=== PATIENT | female | born 1975 | race Caucasian/White ===

== ENCOUNTER 2019-02-11 05:28 | Emergency (ER) | payer OTHER ==
[2019-02-11] MEDS ORDERED: CLINDAMYCIN PHOSPHATE 150 MG/ML VIAL IM ONE (06:04)
[2019-02-11] MEDS ORDERED: HYDROmorphone HCL INJ 2 MG/ML VIAL IM ONE (06:05)
--- NOTE | 2019-02-11 06:11 | ED.PDOC ---
History of Present Illness - General Chief Complaint: Dental/Mouth Stated Complaint: Low jaw pain Time Seen by Provider: 02/11/19 06:04 Source: patient Exam Limitations: no limitations Additional Information: 44-year-old female presents to the ER with chief complaint of diffuse lower gumline swelling. Patient indicates that she has multiple sclerosis and because of the medications shis over the past 5 years most of her teeth have "rotted". Patient has a loose lower incisor tooth and was picking at it with a diabetic lancets yesterday and this morning awoke with severe lower outer gumline pain and swelling. Patient denies fever or chills. Patient is having no difficulty swallowing or breathing. Her tongue is uninvolved. Patient rates her pain as moderate to severe, sharp in intensity. - History of Present Illness Allergies/Adverse Reactions: Allergies Codeine Allergy (Verified 02/11/19 05:42) Adhesive Tape Allergy (Uncoded 02/11/19 05:42) Sulfa Drugs Allergy (Uncoded 02/11/19 05:42) Home Medications: Ambulatory Orders Chlorhexidine Mouth Rinse [Peridex] 10 ml TOP TID #1 bttl 02/11/19 Clindamycin HCl [Clindamycin Hydrochloride] 300 mg PO QID #40 cap 02/11/19 Tramadol HCl [Ultram] 100 mg PO Q8H PRN #20 tab 02/11/19 Review of Systems - Review of Systems Constitutional: States: no symptoms reported. Denies: fever EENTM: States: see HPI Respiratory: States: no symptoms reported. Denies: cough, orthopnea, short of breath Cardiology: States: no symptoms reported, other - known heart murmur. Denies: chest pain Gastrointestinal/Abdominal: States: no symptoms reported. Denies: abdominal pain, nausea, vomiting Genitourinary: States: no symptoms reported Musculoskeletal: States: no symptoms reported Skin: States: no symptoms reported Neurological: States: no symptoms reported All other Systems: Reviewed and Negative Past Medical History (General) - Patient Medical History Hx Cardiac Disorders: Yes - Pulmonary Stenosis / Murmur Hx Congestive Heart Failure: Yes Hx Hypertension: Yes Hx Diabetes: No - Female History Patient is a Female of Child Bearing Age (10 -59 yrs old): Yes Family Medical History - Family History Mother Family History: Unknown Physical Exam - Physical Exam General Appearance: Alert, Comfortable, No apparent distress, Obese Nasal Exam: normal inspection Throat Exam: pharynx normal, dental tenderness - patient with entire mandibular row of teeth severely decayed. There is diffuse mild edema to the buccal surface of the gumline. Negative erythema. Negative fluctuance., other - tongue and floor of mouth with normal inspection. There is no tenderness to palpation to the floor of mouth, negative edema. Voice is normal Neck: non-tender, full range of motion, supple, normal inspection Cardiovascular/Respiratory: regular rate, rhythm, murmur - 3/6 systolic ejection murmur Neurologic: no motor/sensory deficits Skin Exam: normal color, warm/dry Progress - Progress Progress: 02/11/19 06:16 patient with severe decay to all the teeth in her jaw line. It is diffuse edema to the buccal surface of the jawline mucosa but there is no evidence of abscess or necrotization. There is no evidence of Jaspreet angina.facial inspection without any obvious edema. Clindamycin IM given in the ED and patient to be discharged home with clindamycin and Peridex. Patient strongly counseled that she must follow-up with a dentist in order to properly clear her infection and resolve her edema. Patient has no signs or symptoms of sepsis today and there is no indication for formal ED workup with laboratory testing or imaging. Vital signs stable, patient NAD and looks clinically well and is safe for discharge with outpatient follow-up. Follow-up instructions, discharge instructions and return to ED precautions discussed with patient, Patient voices understanding and willingness to comply with instructions. All laboratory and radiographic results have been discussed with the patient, and all questions answered.. Patient happy with plan. - EKG/XRAY/CT CT Ordered: No CT Interpretation Call Back: No Departure - Departure Clinical Impression: Gingivitis, acute, [id number] disease, Dental neglect, Compound dental caries Time of Disposition: 06:20 Disposition: Discharge to Home or Self Care Condition: Fair Departure Forms: ED Discharge - Pt. Copy, Patient Portal Self Enrollment Instructions: DI for Mouth Pain, DI for Dental Pain Diet: resume usual diet Referrals: JOSUE CHAN DDS [Dentist] - 1-2 Weeks Prescriptions: Chlorhexidine Mouth Rinse [Peridex] 10 ml TOP TID #1 bttl Clindamycin HCl [Clindamycin Hydrochloride] 300 mg PO QID #40 cap Tramadol HCl [Ultram] 100 mg PO Q8H PRN #20 tab PRN Reason: Pain Home Medications: Ambulatory Orders Chlorhexidine Mouth Rinse [Peridex] 10 ml TOP TID #1 bttl 02/11/19 Clindamycin HCl [Clindamycin Hydrochloride] 300 mg PO QID #40 cap 02/11/19 Tramadol HCl [Ultram] 100 mg PO Q8H PRN #20 tab 02/11/19
[2019-02-11 06:38] VITALS: BP 108/67; TEMP 97.5; O2SAT 96
== END 2019-02-11 06:37 | disposition home or self-care (01) ==
LOC: ER 05:28
DX: K05.00 Acute gingivitis, plaque induced (principal); K02.9 Dental caries, unspecified; B08.4 Enteroviral vesicular stomatitis with exanthem; R01.1 Cardiac murmur, unspecified; I50.9 Heart failure, unspecified; I11.0 Hypertensive heart disease with heart failure; Z88.5 Allergy status to narcotic agent; Z88.2 Allergy status to sulfonamides
CPT/HCPCS: J1170; J3490

== ENCOUNTER 2019-03-16 18:39 | Emergency (ER) | payer MEDICAID, OTHER ==
[2019-03-16 18:56] VITALS: O2SAT 99
[2019-03-16] MEDS ORDERED: KETOROLAC TROMETHAMINE INJ 30 MG/ML VIAL IM ONE (19:04)
[2019-03-16] MEDS ORDERED: MORPHINE SULFATE INJ 10 MG/ML VIAL IM ONE (19:04)
[2019-03-16] MEDS ORDERED: diphenhydrAMINE HCL 50 MG/ML VIAL IM ONE (19:05)
--- NOTE | 2019-03-16 19:08 | ED.PDOC ---
History of Present Illness - General Chief Complaint: Dental/Mouth Stated Complaint: dental pain,facial swelling Time Seen by Provider: 03/16/19 19:03 - History of Present Illness Initial Comments: c/o dental pain on the R side : upper tooth for few days . Timing/Duration: gradual, last week Improving Factors: nothing Worsening Factors: nothing Associated Symptoms: tooth pain Allergies/Adverse Reactions: Allergies Codeine Allergy (Verified 02/11/19 05:42) Adhesive Tape Allergy (Uncoded 02/11/19 05:42) Sulfa Drugs Allergy (Uncoded 02/11/19 05:42) Home Medications: Ambulatory Orders DULoxetine HCL [Cymbalta] 30 mg PO TID 03/16/19 Metoprolol Succinate [Metoprolol Succinate ER] 50 mg PO DAILY 03/16/19 RX: Amoxicillin 500 mg PO TID #10 tab 03/16/19 RX: Atorvastatin Calcium 40 mg PO DAILY 03/16/19 RX: Gabapentin 800 mg PO TID 03/16/19 RX: Lidocaine 4% Topical [Xylocaine 4% Topical] 50 ml TOP Q6HR 5 Days bttl 03/16/19 RX: Pantoprazole Sodium 40 mg PO DAILY 03/16/19 tiZANidine [Zanaflex] 4 mg PO TID 03/16/19 Review of Systems - Review of Systems Constitutional: States: no symptoms reported EENTM: States: see HPI Respiratory: States: no symptoms reported Cardiology: States: no symptoms reported Gastrointestinal/Abdominal: States: no symptoms reported Genitourinary: States: no symptoms reported Musculoskeletal: States: no symptoms reported Skin: States: no symptoms reported Neurological: States: no symptoms reported Past Medical History (General) - Patient Medical History Hx Stroke: No Hx Cardiac Disorders: Yes - Pulmonary Stenosis / Murmur Hx Congestive Heart Failure: Yes Hx Hypertension: Yes Hx Diabetes: No - Vaccination History Hx Influenza Vaccination: Yes - 2018 - Social History Hx Tobacco Use: Yes - Female History Patient is a Female of Child Bearing Age (10 -59 yrs old): Yes - has been bleeding for 4 months Family Medical History - Family History Mother Family History: Unknown Physical Exam - Physical Exam General Appearance: Alert Eye Exam: bilateral normal Ear Exam: bilateral ear: auricle normal Nasal Exam: normal inspection Throat Exam: normal mouth inspection, pharynx normal, dental tenderness Neck: non-tender, full range of motion, supple, normal inspection Neurologic: no motor/sensory deficits, alert, normal mood/affect, oriented x 3 Skin Exam: normal color, warm/dry Departure - Departure Clinical Impression: Dental caries, Chronic dental infection, Painful mouth, Chronic dental pain, Gingivitis, acute, Compound dental caries Time of Disposition: 19:08 Disposition: Discharge to Home or Self Care Condition: Good Departure Forms: ED Discharge - Pt. Copy, Patient Portal Self Enrollment Instructions: DI for Dental Pain, DI for Mouth Pain Activity: increase activity as tolerated, walking as tolerated Prescriptions: RX: Lidocaine 4% Topical [Xylocaine 4% Topical] 50 ml TOP Q6HR 5 Days bttl RX: Amoxicillin 500 mg PO TID #10 tab Home Medications: Ambulatory Orders DULoxetine HCL [Cymbalta] 30 mg PO TID 03/16/19 Metoprolol Succinate [Metoprolol Succinate ER] 50 mg PO DAILY 03/16/19 RX: Amoxicillin 500 mg PO TID #10 tab 03/16/19 RX: Atorvastatin Calcium 40 mg PO DAILY 03/16/19 RX: Gabapentin 800 mg PO TID 03/16/19 RX: Lidocaine 4% Topical [Xylocaine 4% Topical] 50 ml TOP Q6HR 5 Days bttl 03/16/19 RX: Pantoprazole Sodium 40 mg PO DAILY 03/16/19 tiZANidine [Zanaflex] 4 mg PO TID 03/16/19
[2019-03-16] MEDS ORDERED: cefTRIAXone SODIUM 1 GM VIAL IM ONE (19:12)
[2019-03-16] MEDS ORDERED: LIDOCAINE 1% 2 ML VIAL INJ ONE (19:14)
[2019-03-16] MEDS ORDERED: cefTRIAXone SODIUM 1 GM VIAL ONE (19:14)
[2019-03-16 20:03] VITALS: BP 164/102; TEMP 98
== END 2019-03-16 20:03 | disposition home or self-care (01) ==
LOC: ER 18:39
DX: K04.7 Periapical abscess without sinus (principal); K02.9 Dental caries, unspecified; K05.00 Acute gingivitis, plaque induced; G89.29 Other chronic pain; R01.1 Cardiac murmur, unspecified; I50.9 Heart failure, unspecified; I11.0 Hypertensive heart disease with heart failure; Q25.6 Stenosis of pulmonary artery; Z87.891 Personal history of nicotine dependence; Z79.899 Other long term (current) drug therapy; Z88.5 Allergy status to narcotic agent; Z88.2 Allergy status to sulfonamides
CPT/HCPCS: J0696; J1200; J1885; J2270

== ENCOUNTER 2019-03-23 09:21 | Emergency (ER) | payer OTHER ==
[2019-03-23] MEDS ORDERED: CLINDAMYCIN PHOSPHATE 150 MG/ML VIAL IM ONE (09:41)
[2019-03-23] MEDS ORDERED: KETOROLAC TROMETHAMINE INJ 30 MG/ML VIAL IM ONE (09:42)
[2019-03-23] MEDS ORDERED: cefTRIAXone SODIUM 1 GM VIAL IM ONE (09:42)
--- NOTE | 2019-03-23 09:46 | ED.PDOC ---
History of Present Illness - General Chief Complaint: Dental/Mouth Stated Complaint: L facial swelling/discomfort Time Seen by Provider: 03/23/19 09:41 - History of Present Illness Initial Comments: c/ L sided facial swelling and L dental pain started 1 day back : getting worse Timing/Duration: yesterday Severity: severe EENT Location: dental Improving Factors: nothing Worsening Factors: nothing Associated Symptoms: tooth pain Allergies/Adverse Reactions: Allergies Codeine Adverse Reaction (Verified 03/23/19 09:33) Other Causes a headache Sulfa Drugs Allergy (Uncoded 03/23/19 09:33) Rash Adhesive Tape Adverse Reaction (Uncoded 03/23/19 09:33) Other Skin irritation Home Medications: Ambulatory Orders Atorvastatin Calcium 40 mg PO DAILY 03/16/19 DULoxetine HCL [Cymbalta] 30 mg PO TID 03/16/19 Gabapentin 800 mg PO TID 03/16/19 Metoprolol Succinate [Metoprolol Succinate ER] 50 mg PO DAILY 03/16/19 Pantoprazole Sodium 40 mg PO DAILY 03/16/19 tiZANidine [Zanaflex] 4 mg PO TID 03/16/19 Clindamycin HCl 300 mg PO QID #40 cap 03/23/19 Doxycycline (Monohydrate) [Doxycycline] 100 mg PO BID #20 tab 03/23/19 Naproxen [Naprosyn] 500 mg PO BID #12 tab 03/23/19 Review of Systems - Review of Systems Constitutional: States: no symptoms reported EENTM: States: see HPI Respiratory: States: no symptoms reported Cardiology: States: no symptoms reported Gastrointestinal/Abdominal: States: no symptoms reported Genitourinary: States: no symptoms reported Musculoskeletal: States: no symptoms reported Skin: States: no symptoms reported Neurological: States: no symptoms reported Endocrine: States: no symptoms reported Hematologic/Lymphatic: States: no symptoms reported Past Medical History (General) - Patient Medical History Hx Stroke: No Hx of COPD: - Hx pulmonary stenosis Hx Cardiac Disorders: Yes - Pulmonary Stenosis / Murmur Hx Congestive Heart Failure: No Hx Hypertension: Yes Hx Thyroid Disease: Yes - Pt is not taking the medication Hx Diabetes: No Hx Gastroesophageal Reflux: Yes Hx MRSA: No Surgical History: other - Vaccination History Hx Influenza Vaccination: Yes - 2017 Hx Pneumococcal Vaccination: Yes - 2018 - Social History Hx Tobacco Use: Yes Hx Alcohol Use: No - Female History Patient is a Female of Child Bearing Age (10 -59 yrs old): Yes - Continuous bleeding x 3 months Patient : No Family Medical History - Family History Mother Family History: Unknown Living Status: Still Living Hx Family Congestive Heart Failure: Yes Hx Family Hypertension: Yes Hx Cardiac Disease: Yes Hx Family Diabetes: Yes Hx Family Cancer: Yes - Hx skin CA Physical Exam - Physical Exam General Appearance: Alert Eye Exam: bilateral normal Ear Exam: bilateral ear: auricle normal Nasal Exam: normal inspection Throat Exam: pharynx normal, other - L gingival swelling and tenderness Neck: non-tender, full range of motion, supple Neurologic: no motor/sensory deficits, alert, normal mood/affect, oriented x 3 Skin Exam: normal color Departure - Departure Clinical Impression: Facial swelling, Dental abscess, Gingivitis, acute Time of Disposition: 09:46 Disposition: Discharge to Home or Self Care Condition: Good Departure Forms: ED Discharge - Pt. Copy, Patient Portal Self Enrollment Diet: resume usual diet Activity: increase activity as tolerated Prescriptions: Clindamycin HCl 300 mg PO QID #40 cap Doxycycline (Monohydrate) [Doxycycline] 100 mg PO BID #20 tab Naproxen [Naprosyn] 500 mg PO BID #12 tab Home Medications: Ambulatory Orders Atorvastatin Calcium 40 mg PO DAILY 03/16/19 DULoxetine HCL [Cymbalta] 30 mg PO TID 03/16/19 Gabapentin 800 mg PO TID 03/16/19 Metoprolol Succinate [Metoprolol Succinate ER] 50 mg PO DAILY 03/16/19 Pantoprazole Sodium 40 mg PO DAILY 03/16/19 tiZANidine [Zanaflex] 4 mg PO TID 03/16/19 Clindamycin HCl 300 mg PO QID #40 cap 03/23/19 Doxycycline (Monohydrate) [Doxycycline] 100 mg PO BID #20 tab 03/23/19 Naproxen [Naprosyn] 500 mg PO BID #12 tab 03/23/19 Additional Instructions: Refer to dentist Follow up PCP in 1-2 days
[2019-03-23] MEDS ORDERED: LIDOCAINE 1% 10 ML VIAL INJ ONE (09:48)
[2019-03-23] MEDS ORDERED: MORPHINE SULFATE INJ 10 MG/ML VIAL IM ONE (09:51)
[2019-03-23] MEDS ORDERED: diphenhydrAMINE HCL 25 MG CAP PO ONE (09:53)
[2019-03-23 10:43] VITALS: BP 144/84; TEMP 97.4; O2SAT 96
== END 2019-03-23 10:30 | disposition home or self-care (01) ==
LOC: ER 09:21
DX: K04.7 Periapical abscess without sinus (principal); K05.00 Acute gingivitis, plaque induced; R22.0 Localized swelling, mass and lump, head; R01.1 Cardiac murmur, unspecified; I10 Essential (primary) hypertension; E07.9 Disorder of thyroid, unspecified; K21.9 Gastro-esophageal reflux disease without esophagitis; Z87.891 Personal history of nicotine dependence; Z79.899 Other long term (current) drug therapy; Z88.5 Allergy status to narcotic agent; Z88.2 Allergy status to sulfonamides
CPT/HCPCS: J0696; J1885; J2270; J3490; Q0163

== ENCOUNTER 2019-03-24 18:23 | Emergency (ER) | payer OTHER ==
[2019-03-24 20:49] VITALS: O2SAT 100
[2019-03-24] MEDS ORDERED: HYDROmorphone HCL INJ 2 MG/ML VIAL IM ONE (20:53)
[2019-03-24] MEDS ORDERED: CLINDAMYCIN PHOSPHATE 150 MG/ML VIAL IM ONE (20:54)
--- NOTE | 2019-03-24 20:57 | ED.PDOC ---
History of Present Illness - General Chief Complaint: Dental/Mouth Stated Complaint: tooth infection causing left facial swelling/pain Time Seen by Provider: 03/24/19 20:46 Source: patient, family Exam Limitations: no limitations Additional Information: Gunjan Fields is a 44-year-old female who presents to the ED with chief complaint of dental pain. Patient indicates that she has been having pain in her left upper incisor on an off for several months and has had 4 ED visits in the past month for this. Patient indicates she receives antibiotics and the pain improves but then just comes back. Patient does not have dental insurance but according to the insurance will begin on May 14 and they are trying to wait until then. Patient began with an acute exacerbation of her chronic pain 2 days ago and she indicates that her pain is uncontrolled and is a 10 out of 10 sharp pain. Patient denies fever, chills, nausea, vomiting. The patient has been on clindamycin in the past which has helped her symptoms but her clindamycin is since completed. Patient has no complaints other than her dental pain. - History of Present Illness Allergies/Adverse Reactions: Allergies Codeine Adverse Reaction (Verified 03/23/19 09:33) Other Causes a headache Sulfa Drugs Allergy (Uncoded 03/23/19 09:33) Rash Adhesive Tape Adverse Reaction (Uncoded 03/23/19 09:33) Other Skin irritation Home Medications: Ambulatory Orders Atorvastatin Calcium 40 mg PO DAILY 03/16/19 DULoxetine HCL [Cymbalta] 30 mg PO TID 03/16/19 Gabapentin 800 mg PO TID 03/16/19 Metoprolol Succinate [Metoprolol Succinate ER] 50 mg PO DAILY 03/16/19 Pantoprazole Sodium 40 mg PO DAILY 03/16/19 tiZANidine [Zanaflex] 4 mg PO TID 03/16/19 Clindamycin HCl 300 mg PO QID #40 cap 03/23/19 Doxycycline (Monohydrate) [Doxycycline] 100 mg PO BID #20 tab 03/23/19 Naproxen [Naprosyn] 500 mg PO BID #12 tab 03/23/19 Acetaminophen W/ Codeine [Tylenol W/ CODEINE #3] 1 ea PO Q6H PRN #20 03/24/19 Clindamycin HCl [Clindamycin Hydrochloride] 300 mg PO TID #30 cap 03/24/19 Review of Systems - Review of Systems Constitutional: States: no symptoms reported EENTM: States: see HPI. Denies: nose congestion, throat pain, throat swelling Respiratory: States: no symptoms reported. Denies: cough, short of breath Cardiology: States: no symptoms reported. Denies: chest pain, palpitations Genitourinary: States: no symptoms reported Musculoskeletal: States: no symptoms reported Skin: States: no symptoms reported All other Systems: Reviewed and Negative Past Medical History (General) - Patient Medical History Hx Seizures: No Hx Stroke: No Hx Dementia: No Hx Asthma: No Hx of COPD: No - Hx pulmonary stenosis Hx Cardiac Disorders: Yes - Pulmonary Stenosis / Murmur Hx Congestive Heart Failure: No Hx Pacemaker: No Hx Hypertension: Yes Hx Thyroid Disease: Yes - Pt is not taking the medication Hx Diabetes: No Hx Gastroesophageal Reflux: Yes Hx Renal Disease: No Hx Cancer: No Hx of HIV: No Hx Hepatitis C: No Hx MRSA: No - Vaccination History Hx Influenza Vaccination: Yes - 2017 Hx Pneumococcal Vaccination: Yes - 2018 - Social History Hx Tobacco Use: Yes Hx Alcohol Use: No - Female History Patient : No Family Medical History - Family History Mother Family History: Unknown Living Status: Still Living Hx Family Congestive Heart Failure: Yes Hx Family Hypertension: Yes Hx Cardiac Disease: Yes Hx Family Diabetes: Yes Hx Family Cancer: Yes - Hx skin CA Physical Exam - Physical Exam General Appearance: Alert, Comfortable, Obese, Other - patient is tearful, rocking back and forth in the bed. Nasal Exam: other - Negative facial edema or erythema. There is mild tenderness to palpation to the left lateral aspect adjacent to the bridge of the nose Throat Exam: normal mouth inspection, pharynx normal, other - Widespread dental decay is noted. Patient with left frontal incisor worn down nearly to the gumline. Surrounding gums are unaffected and do not show any evidence of erythema or edema. Neck: non-tender, full range of motion, supple Cardiovascular/Respiratory: regular rate, rhythm, no M/R/G Neurologic: no motor/sensory deficits, alert Skin Exam: normal color, warm/dry Progress - Progress Progress: 03/24/19 21:00 The patient with widespread dental decay with chronic left front incisor pain. There is concern for early superinfection and clindamycin has been given in the ED and I will DC with the same. I discussed with patient considering follow up at [facility] oral maxillary facial surgery clinic. There is no indication for CT imaging today. Vital signs stable, patient is safe for discharge with outpatient follow-up. Follow-up instructions, discharge instructions and return to ED precautions discussed with patient. Patient voices understanding and willingness to comply with instructions. Patient happy with plan. Departure - Departure Clinical Impression: Dental neglect, Chronic dental infection, Chronic dental pain Time of Disposition: 21:04 Disposition: Discharge to Home or Self Care Condition: Fair Departure Forms: ED Discharge - Pt. Copy, Patient Portal Self Enrollment Instructions: DI for Dental Pain Referrals: JOSUE CHAN DDS [Dentist] - 1-2 Weeks Prescriptions: Acetaminophen W/ Codeine [Tylenol W/ CODEINE #3] 1 ea PO Q6H PRN #20 PRN Reason: Pain Clindamycin HCl [Clindamycin Hydrochloride] 300 mg PO TID #30 cap Home Medications: Ambulatory Orders Atorvastatin Calcium 40 mg PO DAILY 03/16/19 DULoxetine HCL [Cymbalta] 30 mg PO TID 03/16/19 Gabapentin 800 mg PO TID 03/16/19 Metoprolol Succinate [Metoprolol Succinate ER] 50 mg PO DAILY 03/16/19 Pantoprazole Sodium 40 mg PO DAILY 03/16/19 tiZANidine [Zanaflex] 4 mg PO TID 03/16/19 Clindamycin HCl 300 mg PO QID #40 cap 03/23/19 Doxycycline (Monohydrate) [Doxycycline] 100 mg PO BID #20 tab 03/23/19 Naproxen [Naprosyn] 500 mg PO BID #12 tab 03/23/19 Acetaminophen W/ Codeine [Tylenol W/ CODEINE #3] 1 ea PO Q6H PRN #20 03/24/19 Clindamycin HCl [Clindamycin Hydrochloride] 300 mg PO TID #30 cap 03/24/19
[2019-03-24 21:20] VITALS: BP 180/99; TEMP 98.9
== END 2019-03-24 21:20 | disposition home or self-care (01) ==
LOC: ER 18:23
DX: K04.7 Periapical abscess without sinus (principal); K02.9 Dental caries, unspecified; G89.29 Other chronic pain; R01.1 Cardiac murmur, unspecified; I10 Essential (primary) hypertension; E07.9 Disorder of thyroid, unspecified; K21.9 Gastro-esophageal reflux disease without esophagitis; Z87.891 Personal history of nicotine dependence; Z79.899 Other long term (current) drug therapy; Z88.5 Allergy status to narcotic agent; Z88.2 Allergy status to sulfonamides
CPT/HCPCS: J1170; J3490

== ENCOUNTER → 2019-04-21 | Outpatient (CLI) | payer OTHER | LOC: GMA MATASK 16:54 | PROVIDERS: ATTEND Family Medicine | DX: N92.0 Excessive and frequent menstruation with regular cycle (principal) ==

== ENCOUNTER 2019-05-05 20:52 | Emergency (ER) | payer OTHER ==
--- NOTE | 2019-05-05 21:14 | ED.PDOC ---
History of Present Illness - General Stated Complaint: I'm light headed Time Seen by Provider: 05/05/19 21:07 Source: patient, RN notes reviewed, Vital Signs reviewed Exam Limitations: no limitations Additional Information: this is a 44-year-old white female who presents to the emergency Department with complaints of feeling dizzy all day. She states that she did not feel that way yesterday. She has a history of anemia and was transfused 2 units approximately one to 2 weeks ago. She states she just quit having vaginal bleeding yesterday after 3 months of continuous vaginal bleeding. It has been contemplated to perform a hysterectomy. She is without a MUSEUM TECHNICIAN currently. She denies having any chest pain and does feel some shortness of breath when trying to ambulate. She denies any tachypnea when sitting still. She reports that she did have a pulmonary embolus many years ago and was on Lovenox. She does describe having pulmonary hypertension and states that she is a smoker. She denies any use of alcohol or drugs. Patient was transfused 2 units the last time she had this particular problem. She was noted to have a hemoglobin of 8 prior to the transfusion. She takes Toprol at night and has not yet taken it tonight.she denies recent productive cough and denies any recent fever. - History of Present Illness Allergies/Adverse Reactions: Allergies Codeine Adverse Reaction (Verified 03/23/19 09:33) Other Causes a headache Sulfa Drugs Allergy (Uncoded 03/23/19 09:33) Rash Adhesive Tape Adverse Reaction (Uncoded 03/23/19 09:33) Other Skin irritation Home Medications: Ambulatory Orders Atorvastatin Calcium 40 mg PO DAILY 03/16/19 DULoxetine HCL [Cymbalta] 30 mg PO TID 03/16/19 Gabapentin 800 mg PO TID 03/16/19 Metoprolol Succinate [Metoprolol Succinate ER] 50 mg PO DAILY 03/16/19 Pantoprazole Sodium 40 mg PO DAILY 03/16/19 tiZANidine [Zanaflex] 4 mg PO TID 03/16/19 Clindamycin HCl 300 mg PO QID #40 cap 03/23/19 Acetaminophen W/ Codeine [Tylenol W/ CODEINE #3] 1 ea PO Q6H PRN #20 03/24/19 Metoprolol Succinate [Toprol Xl] 25 mg PO BEDTIME #30 tab 05/05/19 Review of Systems - Review of Systems Constitutional: States: malaise, weakness - generalized. Denies: chills, fever EENTM: States: no symptoms reported, other - she reports poor dentition Respiratory: States: no symptoms reported, cough, short of breath - with amb ulation. Denies: orthopnea, stridor, wheezing Cardiology: States: no symptoms reported, other - heart rate elevated. Denies: chest pain, edema, palpitations, syncope Gastrointestinal/Abdominal: States: no symptoms reported. Denies: abdominal pain, nausea, vomiting Genitourinary: States: no symptoms reported, other - admits to heavy vaginal bleeding most of the time Musculoskeletal: States: back pain - right CVA region Skin: States: no symptoms reported, other - pallor noted Neurological: States: no symptoms reported Endocrine: States: no symptoms reported Hematologic/Lymphatic: States: anemia, blood clots Past Medical History (General) - Patient Medical History Hx Seizures: No Hx Stroke: No Hx Dementia: No Hx Asthma: No Hx of COPD: No - Hx pulmonary stenosis Hx Cardiac Disorders: Yes - Pulmonary Stenosis / Murmur Hx Congestive Heart Failure: No Hx Pacemaker: No Hx Hypertension: Yes Hx Thyroid Disease: Yes - Pt is not taking the medication Hx Diabetes: No Hx Gastroesophageal Reflux: Yes Hx Renal Disease: No Hx Cancer: No Hx of HIV: No Hx Hepatitis C: No Hx MRSA: No - Vaccination History Hx Influenza Vaccination: Yes - 2018 Hx Pneumococcal Vaccination: Yes - 2018 - Social History Hx Tobacco Use: Yes Hx Alcohol Use: No - Female History Patient : No Family Medical History - Family History Mother Family History: Unknown Living Status: Still Living Hx Family Congestive Heart Failure: Yes Hx Family Hypertension: Yes Hx Cardiac Disease: Yes Hx Family Diabetes: Yes Hx Family Cancer: Yes - Hx skin CA Physical Exam - Physical Exam General Appearance: No apparent distress, Lethargic Eye Exam: bilateral normal Ears, Nose, Throat: normal pharynx, other - poor dentition Neck: non-tender, full range of motion, supple, normal inspection Respiratory: chest non-tender, no respiratory distress, no accessory muscle use, rhonchi - right sided in the upper and lower lobes Cardiovascular/Chest: normal peripheral pulses, no edema, no gallop, no JVD, no murmur, tachycardia Peripheral Pulses: radial,right: 2+, radial,left: 2+ Gastrointestinal/Abdominal: normal bowel sounds, non tender, soft, no organomegaly, no pulsatile mass Rectal Exam: deferred Back Exam: no vertebral tenderness, CVA tenderness (R) Extremity: normal range of motion, non-tender, normal inspection, no pedal edema, no calf tenderness Neurologic: physician office rep II-XII nml as tested, no motor/sensory deficits, oriented x 3, a bnormal gait, depressed affect Skin Exam: other - no evidence of palmar creases, pallor Lymphatic: no adenopathy Progress - Progress Progress: 05/05/19 21:32 MDM: Patient with known history of MS, PE, anemia, menorrhagia, and hypertension presents today with complaints of feeling dizzy. She is noted to be hypotensive. She recently underwent a transfusion with 2 units of packed RBCs. She has a history of a PE. She has menorrhagia which seems to be the etiology of her anemia. She is trying to reestablish with another MUSEUM TECHNICIAN currently. We will evaluate her with serology. We will get a d-dimer. We'll go ahead and get a CTA as well. We will give IV fluid bolus currently to see if we can help with her symptoms. We'll type and screen for RBCs if needed. 05/05/19 22:38 patient and informed about her laboratories studies and CT evaluation. Patient is starting to feel better. She is followed by leather tacker well and also gets iron transfusions. She was urged to go ahead and get a follow-up with them as well. 05/05/19 22:43 also make note that I believe with the patient's anemia she will not need to have as aggressive antihypertensive treatment. We'll give her parameters as to how much metoprolol she should take dependent on her measured blood pressure. 05/05/19 23:18 ordered another 500 cc of IV fluid bolus. Blood pressure continues to improve and heart rate continues to decline. We will get ready to discharge the patient. - Results/Orders Results/Orders: IMPRESSION: Cardiomegaly with dilated pulmonary arterial system, possibly due to underlying pulmonary arterial hypertension. No aortic dissection or aneurysm. No pulmonary embolus centrally. No pneumonia. Electronically signed by: Brandon Tineo MD 05/05/2019 10:16 PM SIGNAL APPRENTICE Laboratory Tests 05/05/19 05/05/19 05/05/19 21:20 21:20 21:20 WBC 6.2 RBC 3.87 L Hgb 9.3 L Hct 30.2 L MCV 78.0 L MCH 24.0 L MCHC 30.8 L RDW 19.7 H Plt Count 300 MPV 7.8 Absolute Neuts (auto) 4.00 Absolute Lymphs (auto) 1.60 Absolute Monos (auto) 0.30 Absolute Eos (auto) 0.20 Absolute Basos (auto) 0.10 Neutrophils % 64.6 Lymphocytes % 25.9 Monocytes % 5.4 Eosinophils % 2.9 Basophils % 1.2 Normal RBC Morphology Stain quality accept D-Dimer, Quantitative Sodium 134 L Potassium 4.0 Chloride 102 Carbon Dioxide 20 L Anion Gap 16.0 BUN 12 Creatinine 1.07 BUN/Creatinine Ratio 11.2 Random Glucose 153 H Serum Osmolality 271.0 L Lactic Acid Calcium 9.5 Total Bilirubin 0.6 AST 65 H ALT 44 Alkaline Phosphatase 79 Troponin I 0.02 Serum Total Protein 8.0 Albumin 3.7 Globulin 4.3 H Albumin/Globulin Ratio 0.9 L 05/05/19 05/05/19 21:20 21:20 WBC RBC Hgb Hct MCV MCH MCHC RDW Plt Count MPV Absolute Neuts (auto) Absolute Lymphs (auto) Absolute Monos (auto) Absolute Eos (auto) Absolute Basos (auto) Neutrophils % Lymphocytes % Monocytes % Eosinophils % Basophils % Normal RBC Morphology D-Dimer, Quantitative 0.22 Sodium Potassium Chloride Carbon Dioxide Anion Gap BUN Creatinine BUN/Creatinine Ratio Random Glucose Serum Osmolality Lactic Acid 2.2 Calcium Total Bilirubin AST ALT Alkaline Phosphatase Troponin I Serum Total Protein Albumin Globulin Albumin/Globulin Ratio - EKG/XRAY/CT EKG: Sinus, Tachy, no ST T wave changes Comments: rate 104 Departure - Departure Clinical Impression: Orthostatic hypotension Anemia Qualifiers: Anemia type: iron deficiency Iron deficiency anemia type: chronic blood loss Qualified Code(s): D50.0 - Iron deficiency anemia secondary to blood loss (chronic) Menorrhagia Qualifiers: Menorrahagia type: with irregular cycle Qualified Code(s): N92.1 - Excessive and frequent menstruation with irregular cycle Time of Disposition: 23:19 Disposition: Discharge to Home or Self Care Condition: Good Departure Forms: ED Discharge - Pt. Copy, Patient Portal Self Enrollment Instructions: DI for Hypotension, DI for High Blood Pressure Referrals: Rodolfo Melton MD [Primary Care Provider] - 1-2 Weeks Prescriptions: Metoprolol Succinate [Toprol Xl] 25 mg PO BEDTIME #30 tab Home Medications: Ambulatory Orders Atorvastatin Calcium 40 mg PO DAILY 03/16/19 DULoxetine HCL [Cymbalta] 30 mg PO TID 03/16/19 Gabapentin 800 mg PO TID 03/16/19 Metoprolol Succinate [Metoprolol Succinate ER] 50 mg PO DAILY 03/16/19 Pantoprazole Sodium 40 mg PO DAILY 03/16/19 tiZANidine [Zanaflex] 4 mg PO TID 03/16/19 Clindamycin HCl 300 mg PO QID #40 cap 03/23/19 Acetaminophen W/ Codeine [Tylenol W/ CODEINE #3] 1 ea PO Q6H PRN #20 03/24/19 Metoprolol Succinate [Toprol Xl] 25 mg PO BEDTIME #30 tab 05/05/19 Additional Instructions: I recommend that you take your blood pressure twice a day for the next 2-3 days. hold the current metoprolol dose in the meantime.If the blood pressure increases to 150/90 I would recommend taking the Toprol-XL 25 mg daily with continued monitoring of the blood pressure. follow-up with your PCP for further instructions. Return to the emergency department if any worsening of symptoms or need for reevaluation.
[2019-05-05] MEDS ORDERED: SODIUM CHLORIDE 0.9% 1000ML 1,000 ML IVS ONE (21:17)
--- NOTE | 2019-05-05 22:18 | CT ---
CLINICAL HISTORY: tachycardia, hx of PE COMPARISON: None. TECHNIQUE: CT CHEST ANGIOGRAPHY WITH IV CONTRAST on 05/05/2019 9:16 PM MUSIC MINISTRIES DIRECTOR. MIPS reconstructions were generated. This exam was performed according to our departmental dose-optimization program, which includes automated exposure control, adjustment of the mA and/or kV according to patient size and/or use of iterative reconstruction technique. MIP images were generated. FINDINGS: Thoracic aorta is normal in course and caliber without aneurysm or dissection. Main pulmonary artery is dilated measuring 4.6 cm. Right pulmonary artery is dilated measuring 3.1 cm. Left pulmonary artery is dilated measuring 3.2 cm. There are no definite large central filling defects. Pulmonary arteries are overall suboptimally opacified. The heart is mildly enlarged. There is no pericardial effusion. Intrathoracic lymph nodes are not enlarged. There is no pleural effusion, pleural thickening or pneumothorax. Central airways are patent. There are mild mosaic attenuation changes of the left lung. There is no focal consolidation. There are no acute abnormalities within the limited images of the upper abdomen. There are no acute osseous findings. No suspicious bony lesions. IMPRESSION: Cardiomegaly with dilated pulmonary arterial system, possibly due to underlying pulmonary arterial hypertension. No aortic dissection or aneurysm. No pulmonary embolus centrally. No pneumonia. Electronically signed by: Brandon Tineo MD 05/05/2019 10:16 PM MUSIC MINISTRIES DIRECTOR
[2019-05-05] MEDS ORDERED: SODIUM CHLORIDE 0.9% 500ML 500 ML IVS ONE ×2 (22:55→22:56)
[2019-05-06 00:02] VITALS: BP 99/54; TEMP 97.8; O2SAT 100
== END 2019-05-05 23:35 | disposition home or self-care (01) ==
LOC: ER 20:52
DX: I95.1 Orthostatic hypotension (principal); D50.0 Iron deficiency anemia secondary to blood loss (chronic); N92.1 Excessive and frequent menstruation with irregular cycle; R00.0 Tachycardia, unspecified; I10 Essential (primary) hypertension; G35 Multiple sclerosis; E07.9 Disorder of thyroid, unspecified; K21.9 Gastro-esophageal reflux disease without esophagitis; F17.200 Nicotine dependence, unspecified, uncomplicated; Z79.899 Other long term (current) drug therapy; Z86.711 Personal history of pulmonary embolism; R01.1 Cardiac murmur, unspecified; Z88.5 Allergy status to narcotic agent; Z88.2 Allergy status to sulfonamides
CPT/HCPCS: 36415; 71275; 80053; 83605; 84484; 85025; 85379; 93005; J7030; J7040

== ENCOUNTER 2019-06-05 18:01 | Emergency (ER) | payer BC, OTHER ==
[2019-06-05 18:18] VITALS: TEMP 99.5; O2SAT 100
[2019-06-05] MEDS ORDERED: CLINDAMYCIN HCL CAP 150 MG CAP PO ONE (18:26)
[2019-06-05] MEDS ORDERED: HYDROcodone 10MG/APAP 325MG 1 EA TAB PO ONE (18:26)
--- NOTE | 2019-06-05 18:50 | ED.PDOC ---
History of Present Illness - General Chief Complaint: Dental/Mouth Stated Complaint: right sided facial swelling Time Seen by Provider: 06/05/19 18:04 Source: patient Exam Limitations: no limitations - History of Present Illness Initial Comments: the patient is a 44-year-old female presenting to the emergency room secondary to infected dental caries and pain related to it. She does have significant swelling adjacent to her lower right molars. It is exquisitely tender to palpation. I cannot tell definitively with ultrasound whether or not there is an abscess formed. Attempted drainage fails to show any pus. The patient already had a dose of Rocephin this morning and has been started on oral amoxicillin. After risks and benefits were explained the patient did agree to an attempted drainage with an 18-gauge needle. This was ultrasound guided. I was unable to obtain any pus. This is likely still in just the cellulitis stage. Timing/Duration: 1 week Severity: severe Improving Factors: nothing Worsening Factors: eating Associated Symptoms: denies symptoms Allergies/Adverse Reactions: Allergies Codeine Adverse Reaction (Verified 03/23/19 09:33) Other Causes a headache Sulfa Drugs Allergy (Uncoded 03/23/19 09:33) Rash Adhesive Tape Adverse Reaction (Uncoded 03/23/19 09:33) Other Skin irritation Home Medications: Ambulatory Orders Atorvastatin Calcium 40 mg PO DAILY 03/16/19 DULoxetine HCL [Cymbalta] 30 mg PO TID 03/16/19 Gabapentin 800 mg PO TID 03/16/19 Metoprolol Succinate [Metoprolol Succinate ER] 50 mg PO DAILY 03/16/19 Pantoprazole Sodium 40 mg PO DAILY 03/16/19 tiZANidine [Zanaflex] 4 mg PO TID 03/16/19 Clindamycin HCl 300 mg PO QID #40 cap 03/23/19 Acetaminophen W/ Codeine [Tylenol W/ CODEINE #3] 1 ea PO Q6H PRN #20 03/24/19 Metoprolol Succinate [Toprol Xl] 25 mg PO BEDTIME #30 tab 05/05/19 Clindamycin HCl 300 mg PO Q8HR #30 cap 06/05/19 Tramadol HCl 50 mg PO Q8HR PRN #20 tab 06/05/19 Review of Systems - Review of Systems Constitutional: States: malaise EENTM: States: mouth pain Respiratory: States: no symptoms reported Cardiology: States: no symptoms reported Gastrointestinal/Abdominal: States: no symptoms reported Genitourinary: States: no symptoms reported Musculoskeletal: States: no symptoms reported Skin: States: see HPI Neurological: States: no symptoms reported Endocrine: States: no symptoms reported Hematologic/Lymphatic: States: no symptoms reported All other Systems: No Change from Baseline Past Medical History (General) - Patient Medical History Hx Seizures: No Hx Stroke: No Hx Dementia: No Hx Asthma: No Hx of COPD: No - Hx pulmonary stenosis Hx Cardiac Disorders: Yes - Pulmonary Stenosis / Murmur Hx Congestive Heart Failure: No Hx Pacemaker: No Hx Hypertension: Yes Hx Thyroid Disease: Yes - Pt is not taking the medication Hx Diabetes: No Hx Gastroesophageal Reflux: Yes Hx Renal Disease: No Hx Cancer: No Hx of HIV: No Hx Hepatitis C: No Hx MRSA: No - Vaccination History Hx Tetanus, Diphtheria Vaccination: Yes Hx Influenza Vaccination: Yes - 2018 Hx Pneumococcal Vaccination: Yes - 2018 - Social History Hx Tobacco Use: Yes Hx Alcohol Use: No Hx Substance Use: No Hx Substance Use Treatment: No Hx Depression: No Hx Physical Abuse: No Hx Emotional Abuse: No Hx Suspected Abuse: No - Female History Patient : No Family Medical History - Family History Mother Family History: Unknown Living Status: Still Living Hx Family Congestive Heart Failure: Yes Hx Family Hypertension: Yes Hx Cardiac Disease: Yes Hx Family Diabetes: Yes Hx Family Cancer: Yes - Hx skin CA Physical Exam - Physical Exam General Appearance: Alert, Obvious distress Eye Exam: bilateral normal Ears, Nose, Throat: hearing grossly normal, other - extremely poor dentition. See history of present illness. 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 We did attempt at drainage of the area however no pus was obtained. This appears to still be in a cellulitis form without any abscess formed yet. The patient was given a dose of clindamycin here and a dose of hydrocodone. She'll be written for tramadol for as needed use and will continue the clindamycin. I do want her to continue the amoxicillin as well for now for double coverage. I would recommend that she follow-up with her primary care doctor tomorrow or the next day for repeat evaluation. Obviously if she is failing to respond or this is getting worse, then she may end up requiring IV antibiotics. At this point it does not seem necessary. ER warnings were given. [email or web address] [id number] Departure - Departure Clinical Impression: Infected dental caries Disposition: Discharge to Home or Self Care Condition: Fair Departure Forms: ED Discharge - Pt. Copy, Patient Portal Self Enrollment Instructions: DI for Dental Pain Diet: regular diet Activity: increase activity as tolerated Referrals: Rodolfo Melton MD [Primary Care Provider] - 1-2 Weeks Prescriptions: Clindamycin HCl 300 mg PO Q8HR #30 cap Tramadol HCl 50 mg PO Q8HR PRN #20 tab PRN Reason: Moderate Pain Home Medications: Ambulatory Orders Atorvastatin Calcium 40 mg PO DAILY 03/16/19 DULoxetine HCL [Cymbalta] 30 mg PO TID 03/16/19 Gabapentin 800 mg PO TID 03/16/19 Metoprolol Succinate [Metoprolol Succinate ER] 50 mg PO DAILY 03/16/19 Pantoprazole Sodium 40 mg PO DAILY 03/16/19 tiZANidine [Zanaflex] 4 mg PO TID 03/16/19 Clindamycin HCl 300 mg PO QID #40 cap 03/23/19 Acetaminophen W/ Codeine [Tylenol W/ CODEINE #3] 1 ea PO Q6H PRN #20 03/24/19 Metoprolol Succinate [Toprol Xl] 25 mg PO BEDTIME #30 tab 05/05/19 Clindamycin HCl 300 mg PO Q8HR #30 cap 06/05/19 Tramadol HCl 50 mg PO Q8HR PRN #20 tab 06/05/19 Additional Instructions: the patient's 44-year-old female presenting with a right sided facial cellulitis associated with a right lower molar dental root infection. We did attempt at drainage of the area however no pus was obtained. This appears to still be in a cellulitis form without any abscess formed yet. The patient was given a dose of clindamycin here and a dose of hydrocodone. She'll be written for tramadol for as needed use and will continue the clindamycin. I do want her to continue the amoxicillin as well for now for double coverage. I would recommend that she follow-up with her primary care doctor tomorrow or the next day for repeat evaluation. Obviously if she is failing to respond or this is getting worse, then she may end up requiring IV antibiotics. At this point it does not seem necessary. ER warnings were given.
[2019-06-05 18:59] VITALS: BP 151/74
== END 2019-06-05 18:59 | disposition home or self-care (01) ==
LOC: ER 18:01
DX: K04.7 Periapical abscess without sinus (principal); K02.9 Dental caries, unspecified; R01.1 Cardiac murmur, unspecified; I10 Essential (primary) hypertension; E07.9 Disorder of thyroid, unspecified; K21.9 Gastro-esophageal reflux disease without esophagitis; Z87.891 Personal history of nicotine dependence; Z79.899 Other long term (current) drug therapy; Z88.5 Allergy status to narcotic agent; Z88.2 Allergy status to sulfonamides

== ENCOUNTER 2019-06-06 11:07 | Emergency (ER) | payer BC, OTHER ==
[2019-06-06] MEDS ORDERED: fentaNYL CITRATE INJ 50 MCG/ML AMP IV ONE (11:23)
--- NOTE | 2019-06-06 11:26 | ED.PDOC ---
History of Present Illness - General Chief Complaint: General Stated Complaint: increased facial swelling Time Seen by Provider: 06/06/19 11:14 Source: patient, RN notes reviewed, Vital Signs reviewed Exam Limitations: no limitations - History of Present Illness Initial Comments: Patient has a history of very poor dentition with recurrent dental carries presenting with complaints of worsening right sided facial swelling. She states that she was seen yesterday and had bedside needle aspiration for possible abscess. States that the facial swelling was significant yesterday however worsened today. Was started on Clindamycin yesterday. No recent dental surgeries. No fevers, chills, nausea, vomiting or SOB. Tolerating Secretions. Timing/Duration: 24 hours, getting worse Severity: moderate Improving Factors: nothing Allergies/Adverse Reactions: Allergies Codeine Adverse Reaction (Verified 03/23/19 09:33) Other Causes a headache Sulfa Drugs Allergy (Uncoded 03/23/19 09:33) Rash Adhesive Tape Adverse Reaction (Uncoded 03/23/19 09:33) Other Skin irritation Home Medications: Ambulatory Orders Atorvastatin Calcium 40 mg PO DAILY 03/16/19 DULoxetine HCL [Cymbalta] 30 mg PO DAILY 03/16/19 Gabapentin 800 mg PO TID 03/16/19 Metoprolol Succinate [Metoprolol Succinate ER] 50 mg PO DAILY 03/16/19 Pantoprazole Sodium 40 mg PO DAILY 03/16/19 tiZANidine [Zanaflex] 4 mg PO TID 03/16/19 Clindamycin HCl 300 mg PO QID #40 cap 03/23/19 Clindamycin HCl 300 mg PO Q8HR #30 cap 06/05/19 Tramadol HCl 50 mg PO Q8HR PRN #20 tab 06/05/19 Review of Systems - Review of Systems Constitutional: States: see HPI. Denies: chills, fever EENTM: States: mouth pain, mouth swelling Respiratory: Denies: short of breath Cardiology: Denies: chest pain Gastrointestinal/Abdominal: Denies: vomiting Genitourinary: Denies: frequency Musculoskeletal: Denies: joint pain Skin: Denies: rash Neurological: Denies: headache Past Medical History (General) - Patient Medical History Hx Seizures: No Hx Stroke: No Hx Dementia: No Hx Asthma: No Hx of COPD: No - Hx pulmonary stenosis Hx Cardiac Disorders: Yes - Pulmonary Stenosis / Murmur Hx Congestive Heart Failure: No Hx Pacemaker: No Hx Hypertension: Yes Hx Thyroid Disease: Yes - Pt is not taking the medication Hx Diabetes: No Hx Gastroesophageal Reflux: Yes Hx Renal Disease: No Hx Cancer: No Hx of HIV: No Hx Hepatitis C: No Hx MRSA: No - Vaccination History Hx Tetanus, Diphtheria Vaccination: Yes Hx Influenza Vaccination: Yes Hx Pneumococcal Vaccination: Yes - 2018 - Social History Hx Tobacco Use: Yes Hx Alcohol Use: No Hx Substance Use: No Hx Substance Use Treatment: No Hx Depression: No Hx Physical Abuse: No Hx Emotional Abuse: No Hx Suspected Abuse: No - Female History Patient : No Family Medical History - Family History Mother Family History: Unknown Living Status: Still Living Hx Family Congestive Heart Failure: Yes Hx Family Hypertension: Yes Hx Cardiac Disease: Yes Hx Family Diabetes: Yes Hx Family Cancer: Yes - Hx skin CA Physical Exam - Physical Exam General Appearance: Alert, Other - Appears uncomfortable Ears, Nose, Throat: other - Very poor dentition with dental carries throughout. No trismus. No fluctuance under tongue. Edema to right lower jaw and neck with slight erythema Neck: non-tender, full range of motion, supple, normal inspection Respiratory: lungs clear, normal breath sounds, no respiratory distress, no accessory muscle use Cardiovascular/Chest: normal peripheral pulses, regular rate, rhythm, no edema Gastrointestinal/Abdominal: non tender, soft Rectal Exam: deferred Back Exam: no CVA tenderness Neurologic: transportation planning engineer II-XII nml as tested, alert, normal mood/affect, oriented x 3 Progress - Progress Progress: DDx: Periapical abscess, cellulitis, Lia Angina, soft tissue abscess Patient presents for evaluation of worsening facial edema and concerns for abscess. She was afebrile and hemdoynamically stable. There was no trismus or fluctuance under tongue to suggest lia angina. Given worsening swelling, there was concerns for abscess vs. deeper infection. Lab work was not significant for leukocytosis. CT of the soft tissue with contrast was not suggestive of abscess. It was more consistent with facial cellulitis. There was no signs of Lia angina on CT. I discussed admission for IV abx vs. discharge home. Patient stated that she would not want to be admitted. Given patient did not picker tender antibiotics yesterday, it is expected for some worsening of the edema. Therefore, patient will be discharged home. For her chronic anemia, she was given one unit PRBC. 06/06/19 11:29 Evaluated patient. Imaging, lab work and pain medication ordered. 06/06/19 12:30 Discussed CBC and anemia. Patient has chronic anemia, last transfusion two months ago. She received iron infusions monthly. Will plan to transfuse one unit. 06/06/[address] findings with the patient. Patient has not started her clindamycin that she was discharged home with yesterday. Will plan for IV antibiotic in the ER. I discussed admission versus discharge home. Patient stated that she would prefer to be discharged home plan to start her clindamycin. The worsening of the facial cellulitis and facial edema is expected as she has not started abx yet. Patient will be discharged home after clindamycin and transfusion of 1 unit PRBC. - Results/Orders Results/Orders: CT Face: Reporting MD: Raad Santos Resistor Tester date: Dictation date: EXAM DESCRIPTION: Soft Tissue Neck w/Contrast CLINICAL HISTORY: 44 years Female, Facial swelling and neck swelling. Dental abscess. COMPARISON: None. TECHNIQUE: This exam was performed according to our departmental dose- optimization program, which includes automated exposure control, adjustment of the mA and/or kV according to patient size and/or use of iterative reconstruction technique. Bolus enhanced examination of the face and neck utilizing nonionic contrast with MPR reformatted thin section images. FINDINGS: Erosions and defects and/or fracturing of multiple teeth bilaterally is apparent. A well-defined lucency involving the right side of the mandible surrounding a tooth root is not evident but there is a thin approximate 2 mm thick layer of fluid with a single small bubble of air along the outer surface of the mandible approximately 1.5 cm to the right of midline and extending over an approximate 1.5 cm length. A thin layer of infection with surrounding soft tissue thickening and subcutaneous inflammatory changes are noted. This extends below the mandibular body with multiple small normal to upper normal subcutaneous mandibular lymph nodes noted in the midline. Subcutaneous inflammation superficial and deep to the platysma to the right of midline is present. Mildly enlarged approximate 1.2 x 2 cm lymph node just anterior to the right submandibular gland is noted with an upper normal lymph node in a similar location to the left of midline. No abnormality of the right or left parotid gland or submandibular gland is noted. And a small normal thyroid gland at the thoracic inlet is apparent. The larynx and subglottic airway in the region of the epiglottis and hypopharynx is unremarkable. No abnormality at the skull base or involving the retropharyngeal soft tissues noted. The parapharyngeal space and the oropharynx appear normal as well as the base of the tongue. The petrous ridges and mastoid air cell systems as well as the left maxillary and remainder of left paranasal sinuses are clear. Moderate mucosal thickening and/or small retention cyst or polyp in the right maxillary sinus inferiorly is present without air-fluid level suggesting chronic inflammatory changes. The right ethmoid and sphenoid sinuses are clear. The base of each frontal sinus is clear. The region of the orbits is normal bilaterally IMPRESSION: 1. Markedly abnormal dentition with multiple fractured or eroded teeth without a distinct or definite periapical abscess involving the right side of the mandible. However a thin 2 mm layer of fluid along the right superficial surface of the mandible approximately 1.5 cm to the right of midline suggest a small localized inflammatory fluid collection with a single tiny bubble of gas in this location. Marked soft tissue inflammation as well as subcutaneous inflammation superficial and deep to the platysma in the infra mandibular region noted. 2. Mild mucosal thickening and/or retention cyst or polyp inferior right maxillary sinus without air-fluid level or other changes to suggest acute inflammation. 3. The remainder of the visualized paranasal sinuses and orbits are clear. 4. Reactive normal in upper normal lymph nodes in the submental region with solitary mildly enlarged right submandibular lymph node approximately 2 cm in diameter superficial to these submandibular gland without evidence of cavitation or necrosis. Electronically signed by: Raad Santos MD 06/06/2019 12:42 PM FIRE ENGINE OPERATOR 06/06/19 11:23 Hold Metformin x 48Hrs [id number] 06/06/19 12:27 Acetaminophen [Tylenol] 650 mg PO ONCE ONE diphenhydrAMINE HCL [Benadryl] 25 mg IV ONCE ONE 06/06/19 12:30 Sodium Chloride 0.9% 500Ml [NS 500ml] 500 ml IVS .KVO 06/06/19 12:35 PACKED CELLS,LR Stat TYPE AND SCREEN Stat Laboratory Results WBC 5.4 K/mm3 (4.8-10.8) 06/06/19 11:35 RBC 2.89 M/mm3 (4.20-5.40) L 06/06/19 11:35 Hgb 6.4 gm/dL (12.0-16.0) L* 06/06/19 11:35 Hct 21.3 % (36.0-47.0) L 06/06/19 11:35 MCV 73.8 fl (81.0-99.0) L 06/06/19 11:35 MCH 22.1 pg (27.0-31.0) L 06/06/19 11:35 MCHC 30.0 g/dL (33.0-37.0) L 06/06/19 11:35 RDW 18.9 % (11.5-14.5) H 06/06/19 11:35 Plt Count 232 K/mm3 (130-400) 06/06/19 11:35 MPV 7.6 fl (7.40-10.4) 06/06/19 11:35 Absolute Neuts (auto) 4.20 K/uL (1.8-6.8) 06/06/19 11:35 Absolute Lymphs (auto) 0.90 K/uL (1.0-3.4) L 06/06/19 11:35 Absolute Monos (auto) 0.30 K/uL (0.2-0.8) 06/06/19 11:35 Absolute Eos (auto) 0.10 K/uL (0.0-0.4) 06/06/19 11:35 Absolute Basos (auto) 0.00 K/uL (0.0-0.1) 06/06/19 11:35 Neutrophils % 77.0 % (42.0-78.0) 06/06/19 11:35 Lymphocytes % 16.0 % (20.0-50.0) L 06/06/19 11:35 Monocytes % 5.2 % (2.0-9.0) 06/06/19 11:35 Eosinophils % 1.6 % (1.0-5.0) 06/06/19 11:35 Basophils % 0.2 % (0.0-2.0) 06/06/19 11:35 Normal RBC Morphology 2+aniso 1+poikilocytosis 1+polychromasia 2+hypochromia 1+microcytosis Plts andreia adequate Stain quality accept 06/06/19 11:35 Normal RBC Morphology 2+aniso 1+poikilocytosis 1+polychromasia 2+hypochromia 1+microcytosis Plts andreia adequate Stain quality accept 06/06/19 11:35 Normal RBC Morphology 2+aniso 1+poikilocytosis 1+polychromasia 2+hypochromia 1+microcytosis Plts andreia adequate Stain quality accept 06/06/19 11:35 Normal RBC Morphology 2+aniso 1+poikilocytosis 1+polychromasia 2+hypochromia 1+microcytosis Plts andreia adequate Stain quality accept 06/06/19 11:35 Normal RBC Morphology 2+aniso 1+poikilocytosis 1+polychromasia 2+hypochromia 1+microcytosis Plts andreia adequate Stain quality accept 06/06/19 11:35 Normal RBC Morphology 2+aniso 1+poikilocytosis 1+polychromasia 2+hypochromia 1+microcytosis Plts andreia adequate Stain quality accept 06/06/19 11:35 Normal RBC Morphology 2+aniso 1+poikilocytosis 1+polychromasia 2+hypochromia 1+microcytosis Plts andreia adequate Stain quality accept 06/06/19 11:35 Sodium 136 mmol/L (135-145) 06/06/19 11:35 Potassium 3.5 mmol/L (3.6-5.0) L 06/06/19 11:35 Chloride 102 mmol/L (101-111) 06/06/19 11:35 Carbon Dioxide 23 mmol/L (21-31) 06/06/19 11:35 Anion Gap 14.5 (12-18) 06/06/19 11:35 BUN 10 mg/dL (7-18) 06/06/19 11:35 Creatinine 0.82 mg/dL (0.6-1.3) 06/06/19 11:35 BUN/Creatinine Ratio 12.2 (10-20) 06/06/19 11:35 Random Glucose 110 mg/dL (70-105) H 06/06/19 11:35 Serum Osmolality 271.6 mOsm/L (275-295) L 06/06/19 11:35 Lactic Acid 1.4 mmol/L (0.5-2.2) 06/06/19 11:35 Calcium 8.9 mg/dL (8.4-10.2) 06/06/19 11:35 Total Bilirubin 0.9 mg/dL (0.2-1.0) 06/06/19 11:35 AST 26 IU/L (10-42) 06/06/19 11:35 ALT 21 IU/L (10-60) 06/06/19 11:35 Alkaline Phosphatase 88 IU/L (42-121) 06/06/19 11:35 Serum Total Protein 7.4 gm/dL (6.4-8.2) 06/06/19 11:35 Albumin 3.3 g/dl (3.2-5.5) 06/06/19 11:35 Globulin 4.1 gm/dL (2.3-3.5) H 06/06/19 11:35 Albumin/Globulin Ratio 0.8 (1.1-1.9) L 06/06/19 11:35 Serum HCG, Qual Negative (NEGATIVE) 06/06/19 11:35 Crossmatch See Detail 06/06/19 12:35 Departure - Departure Clinical Impression: Facial cellulitis, Microcytic anemia Time of Disposition: 14:16 Disposition: Discharge to Home or Self Care Condition: Good Departure Forms: ED Discharge - Pt. Copy, Patient Portal Self Enrollment Instructions: Cellulitis and Erysipelas (Skin Infections) Activity: increase activity as tolerated Referrals: Rodolfo Melton MD [Primary Care Provider] - 1-2 Weeks Home Medications: Ambulatory Orders Atorvastatin Calcium 40 mg PO DAILY 03/16/19 DULoxetine HCL [Cymbalta] 30 mg PO DAILY 03/16/19 Gabapentin 800 mg PO TID 03/16/19 Metoprolol Succinate [Metoprolol Succinate ER] 50 mg PO DAILY 03/16/19 Pantoprazole Sodium 40 mg PO DAILY 03/16/19 tiZANidine [Zanaflex] 4 mg PO TID 03/16/19 Clindamycin HCl 300 mg PO QID #40 cap 03/23/19 Clindamycin HCl 300 mg PO Q8HR #30 cap 06/05/19 Tramadol HCl 50 mg PO Q8HR PRN #20 tab 06/05/19 Comments: Zaria Flowers #[id number]
[2019-06-06] MEDS ORDERED: ACETAMINOPHEN 325 MG TAB PO ONE (12:27)
[2019-06-06] MEDS ORDERED: diphenhydrAMINE HCL 50 MG/ML VIAL IV ONE (12:27)
[2019-06-06] MEDS ORDERED: SODIUM CHLORIDE 0.9% 500ML 500 ML IVS SCH (12:30)
--- NOTE | 2019-06-06 12:44 | CT ---
EXAM DESCRIPTION: Soft Tissue Neck w/Contrast CLINICAL HISTORY: 44 years Female, Facial swelling and neck swelling. Dental abscess. COMPARISON: None. TECHNIQUE: This exam was performed according to our departmental dose-optimization program, which includes automated exposure control, adjustment of the mA and/or kV according to patient size and/or use of iterative reconstruction technique. Bolus enhanced examination of the face and neck utilizing nonionic contrast with MPR reformatted thin section images. FINDINGS: Erosions and defects and/or fracturing of multiple teeth bilaterally is apparent. A well-defined lucency involving the right side of the mandible surrounding a tooth root is not evident but there is a thin approximate 2 mm thick layer of fluid with a single small bubble of air along the outer surface of the mandible approximately 1.5 cm to the right of midline and extending over an approximate 1.5 cm length. A thin layer of infection with surrounding soft tissue thickening and subcutaneous inflammatory changes are noted. This extends below the mandibular body with multiple small normal to upper normal subcutaneous mandibular lymph nodes noted in the midline. Subcutaneous inflammation superficial and deep to the platysma to the right of midline is present. Mildly enlarged approximate 1.2 x 2 cm lymph node just anterior to the right submandibular gland is noted with an upper normal lymph node in a similar location to the left of midline. No abnormality of the right or left parotid gland or submandibular gland is noted. And a small normal thyroid gland at the thoracic inlet is apparent. The larynx and subglottic airway in the region of the epiglottis and hypopharynx is unremarkable. No abnormality at the skull base or involving the retropharyngeal soft tissues noted. The parapharyngeal space and the oropharynx appear normal as well as the base of the tongue. The petrous ridges and mastoid air cell systems as well as the left maxillary and remainder of left paranasal sinuses are clear. Moderate mucosal thickening and/or small retention cyst or polyp in the right maxillary sinus inferiorly is present without air-fluid level suggesting chronic inflammatory changes. The right ethmoid and sphenoid sinuses are clear. The base of each frontal sinus is clear. The region of the orbits is normal bilaterally IMPRESSION: 1. Markedly abnormal dentition with multiple fractured or eroded teeth without a distinct or definite periapical abscess involving the right side of the mandible. However a thin 2 mm layer of fluid along the right superficial surface of the mandible approximately 1.5 cm to the right of midline suggest a small localized inflammatory fluid collection with a single tiny bubble of gas in this location. Marked soft tissue inflammation as well as subcutaneous inflammation superficial and deep to the platysma in the infra mandibular region noted. 2. Mild mucosal thickening and/or retention cyst or polyp inferior right maxillary sinus without air-fluid level or other changes to suggest acute inflammation. 3. The remainder of the visualized paranasal sinuses and orbits are clear. 4. Reactive normal in upper normal lymph nodes in the submental region with solitary mildly enlarged right submandibular lymph node approximately 2 cm in diameter superficial to these submandibular gland without evidence of cavitation or necrosis. Electronically signed by: Raad Santos MD 06/06/2019 12:42 PM [facility]
[2019-06-06] MEDS ORDERED: CLINDAMYCIN IV 900MG 900 MG in PREMIX BAG 1 BAG IVPB ONE (13:21)
[2019-06-06] MEDS ORDERED: HYDROcodone 10MG/APAP 325MG 1 EA TAB PO ONE (13:32)
[2019-06-06] MEDS ORDERED: CLINDAMYCIN IV 900MG 50 ML IVPB ONE (13:35)
[2019-06-06 15:17] VITALS: TEMP 97.4
[2019-06-06 17:50] VITALS: O2SAT 100
[2019-06-06 17:51] VITALS: BP 141/71
== END 2019-06-06 17:05 | disposition home or self-care (01) ==
LOC: ER 11:07
DX: L03.211 Cellulitis of face (principal); D50.9 Iron deficiency anemia, unspecified; K02.9 Dental caries, unspecified; R01.1 Cardiac murmur, unspecified; I10 Essential (primary) hypertension; E07.9 Disorder of thyroid, unspecified; K21.9 Gastro-esophageal reflux disease without esophagitis; Z87.891 Personal history of nicotine dependence; Z79.899 Other long term (current) drug therapy; Z88.5 Allergy status to narcotic agent; Z88.2 Allergy status to sulfonamides
CPT/HCPCS: 70491; 80053; 83605; 84703; 85025; 86850; 86900; 86901; 86922; 96365; 99284; J1200; J3010; J3490; J7040

== ENCOUNTER 2019-06-26 16:11 | Observation (INO) | payer BC, OTHER ==
[2019-06-26] MEDS ORDERED: diphenhydrAMINE HCL 50 MG/ML VIAL IV ONE (22:31)
[2019-06-26] MEDS ORDERED: ACETAMINOPHEN 325 MG TAB PO ONE (22:31)
[2019-06-26] MEDS ORDERED: SODIUM CHLORIDE 0.9% 500ML 500 ML ONE (22:31)
[2019-06-26] MEDS ORDERED: ONDANSETRON INJ 4 MG/2 ML VIAL IV PRN (22:32)
[2019-06-26] MEDS ORDERED: SODIUM CHLORIDE 0.9% (FLUSH) 10 ML SYG IV PRN (22:32)
[2019-06-26] MEDS ORDERED: IV SET AND CAP CHANGE INJ INJ SCH (23:00)
[2019-06-26] MEDS ORDERED: SODIUM CHLORIDE 0.9% 500ML 500 ML IVS SCH (23:00)
[2019-06-27 06:59] VITALS: TEMP 98; O2SAT 98
[2019-06-27 08:16] VITALS: BP 159/84
--- NOTE | 2019-06-27 08:52 | SSS ---
SUPERVISING PHYSICIAN: Rodolfo Melton MD DATE OF ADMISSION: 06/26/19 DATE OF DISCHARGE: 06/27/19 ADMISSION DIAGNOSIS: 1. Dysfunctional uterine bleeding. 2. Symptomatic anemia, microcytic/hypochromic secondary to vaginal bleeding, needing further workup as an outpatient. 3. Multiple sclerosis. 4. Hypertension. 5. Anxiety. 6. Gastroesophageal reflux disease. DISCHARGE DIAGNOSIS: 1. Dysfunctional uterine bleeding, requires followup with gynecology and further workup at discharge. 2. Symptomatic anemia secondary to #1, receiving 2 units of packed red blood cells, stable. 3. Multiple sclerosis. 4. Hypertension. 5. Anxiety. 6. Gastroesophageal reflux disease. CHIEF COMPLAINT: Vaginal bleeding. HISTORY OF PRESENT ILLNESS: Mr. Fields is a 34-year-old female patient who presented to the Emergency Room yesterday with excessive vaginal bleeding and some dizziness that had been happening over the last week. She endorses she has a history of a continuous dysfunctional vaginal bleeding and has been occurring for over a year. In fact, she had two transfusions in May of 2019. She denied feeling shortness of breath, chest pain or syncope. She does note she has been passing large blood clots. She denies any other discharge. She is not sure when her last menstrual period was as she has had continuous bleeding for multiple months. She was seen in the clinic and was found to be significantly anemic with hemoglobin 6 and referred to the Emergency Room for further evaluation. Her primary care physician is Dr. Melton, but she has not seen INTERNET MARKETING STRATEGIST in multiple years. She was hemodynamically stable in the Emergency Room, but given her significant anemia and her dizziness, she was to be transfused 2 units of packed red blood cells and it was requested by the ER physician due to the fact the patient was symptomatic, she was going to be placed in observation overnight for continued transfusion and further monitoring. She was placed in observation in stable condition. PAST MEDICAL HISTORY: 1. Chronic dysfunctional uterine bleeding requiring multiple transfusions. 2. Multiple sclerosis. 3. Hypertension. 4. Anxiety. 5. Gastroesophageal reflux disease on a proton pump inhibitor. PAST SURGICAL HISTORY: 1. Two sections. 2. Past surgery as a baby, a cardiac surgery, the patient is unsure of what it was, as an due to a hole in her heart. HOME MEDICATIONS: Please see list of updated medications that are verified in electronic medical record. ALLERGIES: CODEINE, SULFA DRUGS, ADHESIVE TAPE. FAMILY HISTORY: Both mother and father are alive with mother having a history of hypertension, diabetes mellitus and cardiac disease with CABG. Dad has a history of hypertension. She has no brothers or sisters. SOCIAL HISTORY: The patient is disabled, lives in [place]. She is . She has multiple children. She smokes half a pack of cigarettes a day and has for over 20 years. She denies any alcohol or illicit drug use. REVIEW OF SYSTEMS: CONSTITUTIONAL: Positive for general malaise, dizziness, weakness. Negative for any fevers, chills, rigors or unintentional weight loss. HEENT: Negative for headaches, vision changes. She does have some dizziness as noted in history of present illness, but denies sore throats, earaches, nasal congestion. RESPIRATORY: Denies wheezing, shortness of breath other than with exertion. No coughing, no hemoptysis. CARDIOVASCULAR: Negative for chest pain, tachycardia, but has had some dizziness, but no syncopal episodes. GASTROINTESTINAL: Negative for nausea, vomiting, diarrhea, constipation or abdominal pain. GENITOURINARY: As noted in history of present illness, vaginal bleeding. Negative for dysuria, hematuria, polyuria. NEUROLOGIC: Positive for dizziness as noted in history of present illness, but denies any syncopal episodes, headaches, vision changes, ataxia or seizures. She does have a history of multiple sclerosis. INTEGUMENTARY: Denies lesions, rashes, moles or unexplained changes. HEMATOLOGIC: Denies bruising, easy bleeding other than the vaginal bleeding as noted in history of present illness, or transfusion reactions. PSYCHIATRIC: Positive for anxiety, but denies depression. PHYSICAL EXAMINATION: VITAL SIGNS: GENERAL: The patient is resting comfortably, appears to be in no acute distress. She is alert. HEENT: Tympanic membranes clear bilaterally. Oropharynx is pink, moist without any lesions. Dentition in poor repair. NECK: Supple, nontender with full range of motion. No jugular venous distention noted. RESPIRATORY: Lungs clear to auscultation bilaterally without any rhonchi, wheezes or rales. CARDIOVASCULAR: Regular rate and rhythm without any appreciable murmurs, gallops, or rubs. ABDOMEN: Obese, but soft, nontender. Positive bowel sounds. GENITOURINARY: Vaginal exam deferred until further workup and request per patient. BACK: Negative for CVA or vertebral tenderness. EXTREMITIES: There is no cyanosis, clubbing or edema. NEUROLOGIC: Cranial nerves II-XII are grossly intact. Facial features are symmetrical. Extraocular movements are within normal limits. There is no nystagmus noted. The patient is alert and oriented times three. SKIN: Warm, pale and dry. LABORATORY: RADIOLOGY: No radiographic studies pending. ASSESSMENT: 1. Dysfunctional uterine bleeding. 2. Symptomatic anemia, microcytic/hypochromic secondary to vaginal bleeding, needing further workup as an outpatient. 3. Multiple sclerosis. 4. Hypertension. 5. Anxiety. 6. Gastroesophageal reflux disease. HOSPITAL COURSE: DISCHARGE ASSESSMENT: PLAN: The patient will be placed in observation overnight for transfusion of 2 units of packed red blood cells. We will repeat hemoglobin and had a complete pathologic response to and anticipate she will be discharged in the morning. She will need followup with Dr. Melton. He will continue with additional workup. #[id number] [facility]
[2019-06-27] MEDS ORDERED: GABAPENTIN 300 MG CAP PO SCH (09:00)
[2019-06-27] MEDS ORDERED: tiZANidine 4 MG TAB PO SCH (09:00)
[2019-06-27] MEDS ORDERED: DULoxetine HCL 30 MG CAP PO SCH (09:00)
[2019-06-27] MEDS ORDERED: PANTOPRAZOLE SODIUM TAB 40 MG PO SCH (21:00)
[2019-06-27] MEDS ORDERED: METOPROLOL SUCCINATE XL 50 MG TAB PO SCH (21:00)
[2019-06-27] MEDS ORDERED: ATORVASTATIN 20 MG TAB PO SCH (21:00)
== END 2019-06-27 09:25 | disposition home or self-care (01) ==
LOC: ER 16:11 → MS 18:20
PROVIDERS: ADMIT Nurse Practitioner Family; ATTEND Nurse Practitioner Family
DX: N93.8 Other specified abnormal uterine and vaginal bleeding (principal); D50.0 Iron deficiency anemia secondary to blood loss (chronic); G35 Multiple sclerosis; I10 Essential (primary) hypertension; F41.9 Anxiety disorder, unspecified; K21.9 Gastro-esophageal reflux disease without esophagitis; F17.210 Nicotine dependence, cigarettes, uncomplicated; Z79.899 Other long term (current) drug therapy; Z88.2 Allergy status to sulfonamides; Z88.6 Allergy status to analgesic agent; Z91.048 Other nonmedicinal substance allergy status; Z98.891 History of uterine scar from previous surgery
CPT/HCPCS: 96374; J1200; J7040; 80053; 85014; 85018; 36415; 85025; 85730; 85610; 86922; 36430 ×2; 94760 ×2; 99285; G0378

== ENCOUNTER 2019-11-09 10:30 | Emergency (ER) | payer BC ==
[2019-11-09] MEDS ORDERED: HYDROcodone 5MG/APAP 325MG 1 EA TAB PO ONE (10:55)
--- NOTE | 2019-11-09 10:58 | ED.PDOC ---
History of Present Illness - General Chief Complaint: Dental/Mouth Stated Complaint: dental pain Time Seen by Provider: 11/09/19 10:54 Source: patient, RN notes reviewed, Vital Signs reviewed - History of Present Illness Initial Comments: 44yo F no PMH with right mandibular tooth pain for "years." Reports pain worsenig over the past several days, and has tried tylenol and ibuprofen with no relief. Denies fever, neck pain/stiffness, drooling, inability to swallow, sore throat or other symptoms at this time. Has not been able to see dentist lately for this complaint. Allergies/Adverse Reactions: Allergies Codeine Adverse Reaction (Verified 03/23/19 09:33) Other Causes a headache Sulfa Drugs Allergy (Uncoded 03/23/19 09:33) Rash Adhesive Tape Adverse Reaction (Uncoded 03/23/19 09:33) Other Skin irritation Home Medications: Ambulatory Orders Atorvastatin Calcium 40 mg PO BEDTIME 03/16/19 DULoxetine HCL [Cymbalta] 30 mg PO TID 03/16/19 Metoprolol Succinate [Metoprolol Succinate ER] 50 mg PO BEDTIME 03/16/19 Pantoprazole Sodium 40 mg PO BEDTIME 03/16/19 tiZANidine [Zanaflex] 4 mg PO TID 03/16/19 Gabapentin 800 mg PO TID 06/27/19 Acetaminophen W/ Codeine [Tylenol/Codeine #4 300-60 mg] 1 ea PO Q6HR PRN #15 tab 11/09/19 Amoxicillin & Pot Clavulanate [Augmentin Tab] 875 mg PO BID #14 tab 11/09/19 Chlorhexidine Mouth Rinse [Peridex] 0.12 % MT BID #1 bttl 11/09/19 Review of Systems - Review of Systems Constitutional: States: no symptoms reported EENTM: States: no symptoms reported, mouth pain Respiratory: States: no symptoms reported Past Medical History (General) - Patient Medical History Hx Seizures: No Hx Stroke: No Hx Dementia: No Hx Asthma: No Hx of COPD: No Hx Cardiac Disorders: Yes - Heart Murmer Hx Congestive Heart Failure: No Hx Pacemaker: No Hx Hypertension: Yes Hx Thyroid Disease: No Hx Diabetes: No Hx Gastroesophageal Reflux: No Hx Renal Disease: No Hx Cancer: No Hx of HIV: No Hx Hepatitis C: No Hx MRSA: No Surgical History: other - Vaccination History Hx Tetanus, Diphtheria Vaccination: No Hx Influenza Vaccination: Yes Hx Pneumococcal Vaccination: Yes - Social History Hx Tobacco Use: Yes Hx Chewing Tobacco Use: No Hx Alcohol Use: No Hx Substance Use: No Hx Substance Use Treatment: No Hx Depression: No Feels Threatened In Home Enviroment: No Feels Threatened In a Relationship: No Hx Physical Abuse: No Hx Emotional Abuse: No Hx Suspected Abuse: No - Female History Patient is a Female of Child Bearing Age (10 -59 yrs old): Yes Patient : No - Triage Comment ED Triage Comment: The patient has minow swelling noted on the lower right jaw and pain noted at an 8. Family Medical History - Family History Mother Family History: Unknown Living Status: Still Living Hx Family Congestive Heart Failure: Yes Hx Family Hypertension: Yes Hx Cardiac Disease: Yes Hx Family Diabetes: Yes Hx Family Cancer: Yes - Hx skin CA Physical Exam - Physical Exam General Appearance: Alert, No apparent distress, Well Developed Eye Exam: bilateral normal Ear Exam: bilateral ear: auricle normal, canal normal, TM normal Nasal Exam: normal inspection Throat Exam: pharynx normal, other - no lingual elevation, uvula midline, poor dentition throughout, no obvious abscess but area of induration in vestibule at approx tooth 29 Neck: non-tender, full range of motion, supple Cardiovascular/Respiratory: regular rate, rhythm Skin Exam: normal color, warm/dry Progress - Progress Progress: 11/09/19 11:01 Well-appearing, afebrile, no noted respiratory compromise. Does not clinically appear [place], CLOTH SHRINKING TESTER, or RPA. No noted extensive odontogenic abscess requiring emergent drainage. Discussed area of induration and possibility of I&D, and patient refused after discussion of risks/benefits/alternatives. Discussed abx (including side effects and risks, including cdiff), and patient agreed. Patient refused test and reported had BTL. [place] PDMP reviewed. Patient and I wore masks for duration of encounter except those as needed to facility exam, and I maintained a distance of 6 feet except for those times need for physical exam. Institutional screening protocol for coronavirus performed in triage. Plan for pain control PRN, ED warnings, and refer to dentistry for definitive care. 11/09/19 11:03 Departure - Departure Clinical Impression: Mouth pain Time of Disposition: 11:06 Disposition: Discharge to Home or Self Care Condition: Fair Departure Forms: ED Discharge - Pt. Copy, Patient Portal Self Enrollment Instructions: DI for Dental Pain, DI for Mouth Pain Diet: resume usual diet Referrals: Rodolfo Melton MD [Primary Care Provider] - 1-2 Weeks Kari Leong DDS [Dentist] - 1-2 Weeks JOSUE CHAN DDS [Dentist] - 1-2 Weeks Cosme Castellon III [Dentist] - 1-2 Weeks Prescriptions: Acetaminophen W/ Codeine [Tylenol/Codeine #4 300-60 mg] 1 ea PO Q6HR PRN #15 tab PRN Reason: Pain -- Severe Amoxicillin & Pot Clavulanate [Augmentin Tab] 875 mg PO BID #14 tab Chlorhexidine Mouth Rinse [Peridex] 0.12 % MT BID #1 bttl Home Medications: Ambulatory Orders Atorvastatin Calcium 40 mg PO BEDTIME 03/16/19 DULoxetine HCL [Cymbalta] 30 mg PO TID 03/16/19 Metoprolol Succinate [Metoprolol Succinate ER] 50 mg PO BEDTIME 03/16/19 Pantoprazole Sodium 40 mg PO BEDTIME 03/16/19 tiZANidine [Zanaflex] 4 mg PO TID 03/16/19 Gabapentin 800 mg PO TID 06/27/19 Acetaminophen W/ Codeine [Tylenol/Codeine #4 300-60 mg] 1 ea PO Q6HR PRN #15 tab 11/09/19 Amoxicillin & Pot Clavulanate [Augmentin Tab] 875 mg PO BID #14 tab 11/09/19 Chlorhexidine Mouth Rinse [Peridex] 0.12 % MT BID #1 bttl 11/09/19
[2019-11-09 11:29] VITALS: BP 193/100; TEMP 97.3; O2SAT 99
== END 2019-11-09 11:29 | disposition home or self-care (01) ==
LOC: ER 10:30
DX: K08.89 Other specified disorders of teeth and supporting structures (principal); I10 Essential (primary) hypertension; F17.200 Nicotine dependence, unspecified, uncomplicated

== ENCOUNTER 2019-12-06 07:35 | Emergency (ER) | payer BC ==
[2019-12-06] MEDS ORDERED: CLINDAMYCIN HCL CAP 150 MG CAP PO ONE (07:39)
[2019-12-06] MEDS ORDERED: KETOROLAC TROMETHAMINE INJ 30 MG/ML VIAL IM ONE (07:40)
--- NOTE | 2019-12-06 07:42 | ED.PDOC ---
History of Present Illness - General Time Seen by Provider: 12/06/19 07:39 Source: patient, RN notes reviewed, Vital Signs reviewed Additional Information: This is a 44-year-old female, with history of multiple sclerosis smoker patient presents to the ER with dental pain, patient stated that she has had issues with her tooth for a while because medication that she takes for MS have rotten her teeth Patient denies fever chills nausea vomiting and does not appear in any distress Patient denies any fever chills or coughing - History of Present Illness Timing/Duration: other - Chronic EENT Location: dental Prearrival Treatment: no prearrival treatment Improving Factors: nothing Worsening Factors: nothing Associated Symptoms: denies symptoms Allergies/Adverse Reactions: Allergies Codeine Adverse Reaction (Verified 03/23/19 09:33) Other Causes a headache Sulfa Drugs Allergy (Uncoded 03/23/19 09:33) Rash Adhesive Tape Adverse Reaction (Uncoded 03/23/19 09:33) Other Skin irritation Home Medications: Ambulatory Orders Atorvastatin Calcium 40 mg PO BEDTIME 03/16/19 DULoxetine HCL [Cymbalta] 30 mg PO TID 03/16/19 Metoprolol Succinate [Metoprolol Succinate ER] 50 mg PO BEDTIME 03/16/19 Pantoprazole Sodium 40 mg PO BEDTIME 03/16/19 tiZANidine [Zanaflex] 4 mg PO TID 03/16/19 Gabapentin 800 mg PO TID 06/27/19 Acetaminophen W/ Codeine [Tylenol/Codeine #4 300-60 mg] 1 ea PO Q6HR PRN #15 tab 11/09/19 Amoxicillin & Pot Clavulanate [Augmentin Tab] 875 mg PO BID #14 tab 11/09/19 Chlorhexidine Mouth Rinse [Peridex] 0.12 % MT BID #1 bttl 11/09/19 Acetamin W/Cod #3 Tab [Tylenol w/CODEINE #3] 1 ea PO Q6HR #20 tab 12/06/19 Clindamycin HCl 300 mg PO TID #15 cap 12/06/19 Review of Systems - Review of Systems Constitutional: States: no symptoms reported EENTM: States: other - Dental pain Respiratory: States: no symptoms reported Cardiology: States: no symptoms reported Gastrointestinal/Abdominal: States: no symptoms reported Genitourinary: States: no symptoms reported Musculoskeletal: States: no symptoms reported Skin: States: no symptoms reported Neurological: States: no symptoms reported Endocrine: States: no symptoms reported Hematologic/Lymphatic: States: no symptoms reported All other Systems: Reviewed and Negative Past Medical History (General) - Patient Medical History Hx Seizures: No Hx Stroke: No Hx Dementia: No Hx Asthma: No Hx of COPD: No Hx Cardiac Disorders: Yes - Heart Murmer Hx Congestive Heart Failure: No Hx Pacemaker: No Hx Hypertension: Yes Hx Thyroid Disease: No Hx Diabetes: No Hx Gastroesophageal Reflux: No Hx Renal Disease: No Hx Cancer: No Hx of HIV: No Hx Hepatitis C: No Hx MRSA: No - Vaccination History Hx Tetanus, Diphtheria Vaccination: No Hx Influenza Vaccination: Yes Hx Pneumococcal Vaccination: Yes - Social History Hx Tobacco Use: Yes Hx Chewing Tobacco Use: No Hx Alcohol Use: No Hx Substance Use: No Hx Substance Use Treatment: No Hx Depression: No Hx Physical Abuse: No Hx Emotional Abuse: No Hx Suspected Abuse: No - Female History Patient : No Family Medical History - Family History Mother Family History: Unknown Living Status: Still Living Hx Family Congestive Heart Failure: Yes Hx Family Hypertension: Yes Hx Cardiac Disease: Yes Hx Family Diabetes: Yes Hx Family Cancer: Yes - Hx skin CA Physical Exam - Physical Exam General Appearance: Well Developed, Well Groomed, Well Hydrated Eye Exam: bilateral normal Ear Exam: bilateral ear: auricle normal Nasal Exam: normal inspection Throat Exam: dental tenderness, other - Cavities, caries, poor dental hygiene, and there is some redness and swelling without any fluctuance on tooth number 8 Cardiovascular/Respiratory: regular rate, rhythm, normal peripheral pulses, no JVD, normal breath sounds, no respiratory distress Abdominal Exam: non-tender, no organomegaly 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, no motor/sensory deficits, alert, normal mood/affect, oriented x 3 Skin Exam: normal color Progress - Progress Progress: 12/06/19 07:43 This a patient presents with bone dental hygiene, there is evidence of missing teeth, evidence of cavities and caries, there is area of swelling without any evidence of abscess noted patient's tooth #8, patient will receive a dose of clindamycin and Toradol for pain will be discharged home with Tylenol 3 and clindamycin and patient was counseled about following up with a dentist soon as possible Departure - Departure Clinical Impression: Gingivitis, acute, Chronic dental pain Disposition: Discharge to Home or Self Care Condition: Good Instructions: Dental Pain (DC), Gingivitis (DC), Periodontal Disease Referrals: Rodolfo Melton MD [Primary Care Provider] - 1-2 Weeks Prescriptions: Acetamin W/Cod #3 Tab [Tylenol w/CODEINE #3] 1 ea PO Q6HR #20 tab Clindamycin HCl 300 mg PO TID #15 cap Home Medications: Ambulatory Orders Atorvastatin Calcium 40 mg PO BEDTIME 03/16/19 DULoxetine HCL [Cymbalta] 30 mg PO TID 03/16/19 Metoprolol Succinate [Metoprolol Succinate ER] 50 mg PO BEDTIME 03/16/19 Pantoprazole Sodium 40 mg PO BEDTIME 03/16/19 tiZANidine [Zanaflex] 4 mg PO TID 03/16/19 Gabapentin 800 mg PO TID 06/27/19 Acetaminophen W/ Codeine [Tylenol/Codeine #4 300-60 mg] 1 ea PO Q6HR PRN #15 tab 11/09/19 Amoxicillin & Pot Clavulanate [Augmentin Tab] 875 mg PO BID #14 tab 11/09/19 Chlorhexidine Mouth Rinse [Peridex] 0.12 % MT BID #1 bttl 11/09/19 Acetamin W/Cod #3 Tab [Tylenol w/CODEINE #3] 1 ea PO Q6HR #20 tab 12/06/19 Clindamycin HCl 300 mg PO TID #15 cap 12/06/19 Additional Instructions: Follow-up with dentist
[2019-12-06 08:00] VITALS: BP 165/82; TEMP 97.8; O2SAT 99
== END 2019-12-06 07:58 | disposition home or self-care (01) ==
LOC: ER 07:35
DX: K05.10 Chronic gingivitis, plaque induced (principal); K08.89 Other specified disorders of teeth and supporting structures; G35 Multiple sclerosis; I10 Essential (primary) hypertension; F17.200 Nicotine dependence, unspecified, uncomplicated

== ENCOUNTER 2019-12-08 13:39 | Emergency (ER) | payer BC ==
[2019-12-08] MEDS ORDERED: CLINDAMYCIN IV 600MG 600 MG in PREMIX BAG 1 BAG IVPB ONE (16:34)
[2019-12-08] MEDS ORDERED: HYDROmorphone HCL INJ 2 MG/ML VIAL IV ONE ×2 (16:48→18:18)
[2019-12-08] MEDS ORDERED: ONDANSETRON INJ 4 MG/2 ML VIAL IV ONE (16:49)
--- NOTE | 2019-12-08 17:20 | ED.PDOC ---
History of Present Illness - General Chief Complaint: Dental/Mouth Stated Complaint: right facial swelling and pain Time Seen by Provider: 12/08/19 16:30 Source: patient, RN notes reviewed, Vital Signs reviewed, old records - From her visit 2 days ago in the emergency department Exam Limitations: no limitations - History of Present Illness Initial Comments: Patient presents with complaints of worsening facial swelling and toothache on the right side of her face. The swelling is over her maxillary sinus and infraorbital area. The pain is throbbing in nature. Is severe in intensity. It is worse with drinking or eating or palpation of the swollen area. Nothing makes it better there is no radiation of the pain patient denies any headaches, fevers, blurry vision, dizziness, nausea, vomiting, diarrhea. Timing/Duration: gradual, other - This is been ongoing and worsening x2 days. Severity: severe EENT Location: dental, other - Right infraorbital area. Prearrival Treatment: prescription meds - Patient is taking pain medication and clindamycin 300 mg 3 times daily. Improving Factors: nothing Worsening Factors: cold therapy, eating Associated Symptoms: facial pain/swelling Allergies/Adverse Reactions: Allergies Codeine Adverse Reaction (Verified 03/23/19 09:33) Other Causes a headache Sulfa Drugs Allergy (Uncoded 03/23/19 09:33) Rash Adhesive Tape Adverse Reaction (Uncoded 03/23/19 09:33) Other Skin irritation Home Medications: Ambulatory Orders Atorvastatin Calcium 40 mg PO BEDTIME 03/16/19 DULoxetine HCL [Cymbalta] 30 mg PO TID 03/16/19 Metoprolol Succinate [Metoprolol Succinate ER] 50 mg PO BEDTIME 03/16/19 Pantoprazole Sodium 40 mg PO BEDTIME 03/16/19 tiZANidine [Zanaflex] 4 mg PO TID 03/16/19 Gabapentin 800 mg PO TID 06/27/19 Chlorhexidine Mouth Rinse [Peridex] 0.12 % MT BID #1 bttl 11/09/19 Acetamin W/Cod #3 Tab [Tylenol w/CODEINE #3] 1 ea PO Q6HR #20 tab 12/06/19 Clindamycin HCl 300 mg PO TID #15 cap 12/06/19 Clindamycin HCl 300 mg PO Q6H #24 cap 12/08/19 Review of Systems - Review of Systems Constitutional: States: no symptoms reported, see HPI, malaise. Denies: chills, fever EENTM: States: see HPI, other - Facial swelling And dental caries. Denies: eye pain, blurred vision, double vision Respiratory: States: no symptoms reported. Denies: cough, short of breath, stridor Cardiology: States: no symptoms reported. Denies: chest pain, palpitations, syncope Gastrointestinal/Abdominal: States: no symptoms reported. Denies: abdominal pain, diarrhea, nausea Genitourinary: States: no symptoms reported Musculoskeletal: States: see HPI, other - Facial swelling. Denies: neck pain Skin: States: see HPI, change in color - Right cheek is red Neurological: States: no symptoms reported. Denies: tingling, tremors, weakness Endocrine: States: no symptoms reported Hematologic/Lymphatic: States: no symptoms reported All other Systems: No Change from Baseline Past Medical History (General) - Patient Medical History Hx Seizures: No Hx Stroke: No Hx Dementia: No Hx Asthma: No Hx of COPD: No Hx Cardiac Disorders: No Hx Congestive Heart Failure: No Hx Pacemaker: No Hx Hypertension: Yes Hx Thyroid Disease: No Hx Diabetes: No Hx Gastroesophageal Reflux: No Hx Renal Disease: No Hx Cancer: No Hx of HIV: No Hx Hepatitis C: No Hx MRSA: No Surgical History: other - Vaccination History Hx Tetanus, Diphtheria Vaccination: - Unsure Hx Influenza Vaccination: Yes Hx Pneumococcal Vaccination: No Immunizations Up to Date: Yes - Social History Hx Tobacco Use: No Hx Chewing Tobacco Use: No Hx Alcohol Use: No Hx Substance Use: No Hx Substance Use Treatment: No Hx Depression: No Feels Threatened In Home Enviroment: No Feels Threatened In a Relationship: No Hx Physical Abuse: No Hx Emotional Abuse: No Hx Suspected Abuse: No - Activities of Daily Living Hospice Agency (if applicable):: None - Female History Patient is a Female of Child Bearing Age (10 -59 yrs old): Yes Patient : No Family Medical History - Family History Mother Family History: Unknown Living Status: Still Living Hx Family Congestive Heart Failure: Yes Hx Family Hypertension: Yes Hx Cardiac Disease: Yes Hx Family Diabetes: Yes Hx Family Cancer: Yes - Hx skin CA Physical Exam - Physical Exam General Appearance: Alert, Anxious, Obvious distress, Obese, Well Developed, Well Groomed, Well Hydrated, Well Nourished Eye Exam: bilateral normal Ear Exam: bilateral ear: auricle normal, canal normal Nasal Exam: normal inspection Throat Exam: normal mouth inspection, pharynx normal, dental tenderness, maxillary swelling Neck: non-tender, full range of motion, supple Cardiovascular/Respiratory: regular rate, rhythm, no M/R/G, normal peripheral pulses, no JVD, normal breath sounds, no respiratory distress Abdominal Exam: non-tender, no organomegaly 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 12/08/19 18:38 Patient with no white count. Improved pain with IV pain medication. CT scan only shows swelling and no abscess formation. Patient given IV clindamycin here. Patient to increase her clindamycin to 4 times a day from 3 times a day. Patient given a prescription for additional clindamycin. Patient to follow-up with dentist this week. I discussed this plan of care with the patient she voices understanding and agreement. Wilner Anaya M.D. #[id number] 12/08/19 18:42 Patient has pain medicine at home and does not need refill on pain medication. I have given patient warnings to return for worsening swelling, fever or not feeling well. I explained her she should start feeling significantly better within 24 hours and if not she may need to come back for admission for IV antibiotics. She voiced understanding and appreciation of the care we provided. - Results/Orders Results/Orders: CT MAXILLOFACIAL WITHOUT IV CONTRAST HISTORY: Right facial pain and swelling. COMPARISON: None. TECHNIQUE: CT scan of the facial bones was performed without IV contrast. This exam was performed according to our departmental dose-optimization program, which includes automated exposure control, adjustment of the mA and/or kV according to patient size and/or use of iterative reconstruction technique. FINDINGS: No acute facial bone fracture is seen. Mucosal thickening within the right maxillary sinus. No air-fluid levels are seen. The mastoids are clear. No retrobulbar mass or hematoma is identified. There is focal soft tissue swelling overlying the right periorbital region. IMPRESSION: Right periorbital soft tissue swelling but without evidence of acute fracture. Electronically signed by: Rogelio Mccoy MD 12/08/2019 5:23 PM CDT 12/08/19 18:16 URINALYSIS Stat Laboratory Results - last 24 hr 12/08/19 12/08/19 12/08/19 16:41 16:41 16:41 WBC 5.9 RBC 4.04 L Hgb 8.6 L Hct 28.6 L MCV 70.9 L MCH 21.3 L MCHC 30.0 L RDW 22.6 H Plt Count 247 MPV 8.2 Absolute Neuts (auto) 4.80 Absolute Lymphs (auto) 0.80 L Absolute Monos (auto) 0.30 Absolute Eos (auto) 0.10 Absolute Basos (auto) 0.00 Neutrophils % 81.2 H Lymphocytes % 12.9 L Monocytes % 4.8 Eosinophils % 0.9 L Basophils % 0.2 Normal RBC Morphology Stain quality accept Sodium 136 Potassium 3.4 L Chloride 104 Carbon Dioxide 22 Anion Gap 13.4 BUN 10 Creatinine 0.90 BUN/Creatinine Ratio 11.1 Random Glucose 120 H Serum Osmolality 272.2 L Calcium 9.1 Serum HCG, Qual Negative Vital Signs 12/08/19 12/08/19 14:20 17:31 Pulse Rate [ 85 95 H Monitor] Respiratory 15 16 Rate Blood Pressure 162/98 199/96 [Right Arm] O2 Sat by Pulse 100 99 Oximetry Departure - Departure Clinical Impression: Facial cellulitis, Dental caries, Dental abscess Time of Disposition: 18:43 Disposition: Discharge to Home or Self Care Condition: Fair Departure Forms: ED Discharge - Pt. Copy, Patient Portal Self Enrollment Instructions: DI for Dental Pain, Cellulitis (Skin Infection), Adult (DC), Dental Pain (DC), Tooth Abscess (DC) Diet: resume usual diet Referrals: Rodolfo Melton MD [Primary Care Provider] - 1-2 Days Prescriptions: Clindamycin HCl 300 mg PO Q6H #24 cap Home Medications: Ambulatory Orders Atorvastatin Calcium 40 mg PO BEDTIME 03/16/19 DULoxetine HCL [Cymbalta] 30 mg PO TID 03/16/19 Metoprolol Succinate [Metoprolol Succinate ER] 50 mg PO BEDTIME 03/16/19 Pantoprazole Sodium 40 mg PO BEDTIME 03/16/19 tiZANidine [Zanaflex] 4 mg PO TID 03/16/19 Gabapentin 800 mg PO TID 01/17/20 Chlorhexidine Mouth Rinse [Peridex] 0.12 % MT BID #1 bttl 11/09/19 Acetamin W/Cod #3 Tab [Tylenol w/CODEINE #3] 1 ea PO Q6HR #20 tab 12/06/19 Clindamycin HCl 300 mg PO TID #15 cap 12/06/19 Clindamycin HCl 300 mg PO Q6H #24 cap 12/08/19
--- NOTE | 2019-12-08 17:25 | CT ---
CT MAXILLOFACIAL WITHOUT IV CONTRAST HISTORY: Right facial pain and swelling. COMPARISON: None. TECHNIQUE: CT scan of the facial bones was performed without IV contrast. This exam was performed according to our departmental dose-optimization program, which includes automated exposure control, adjustment of the mA and/or kV according to patient size and/or use of iterative reconstruction technique. FINDINGS: No acute facial bone fracture is seen. Mucosal thickening within the right maxillary sinus. No air-fluid levels are seen. The mastoids are clear. No retrobulbar mass or hematoma is identified. There is focal soft tissue swelling overlying the right periorbital region. IMPRESSION: Right periorbital soft tissue swelling but without evidence of acute fracture. Electronically signed by: Rogelio Mccoy MD 12/08/2019 5:23 PM CDT
[2019-12-08 18:55] VITALS: BP 150/76; TEMP 98.5; O2SAT 93
== END 2019-12-08 18:55 | disposition home or self-care (01) ==
LOC: ER 13:39
DX: L03.211 Cellulitis of face (principal); K02.9 Dental caries, unspecified; K04.7 Periapical abscess without sinus
CPT/HCPCS: 36415; 70486; 80048; 81001; 84703; 85025; J1170; J2405; J3490

== ENCOUNTER 2019-12-11 21:40 | Emergency (ER) | payer BC ==
[2019-12-11] MEDS ORDERED: ONDANSETRON INJ 4 MG/2 ML VIAL IV ONE (22:14)
[2019-12-11] MEDS ORDERED: MORPHINE SULFATE INJ 10 MG/ML VIAL IV ONE (22:14)
[2019-12-11] MEDS ORDERED: SODIUM CHLORIDE 0.9% (FLUSH) 10 ML SYG ONE (22:35)
--- NOTE | 2019-12-11 23:39 | CT ---
EXAM: PRE AND POSTCONTRAST FACIAL CT EXAMINATION. CLINICAL INDICATION: Right facial swelling. Severe dental disease. COMPARISON: Compared to the noncontrast facial CT examination of December 08, 2019 and the noncontrast brain CT examination of August 05, 2019. TECHNIQUE: Using low dose helical technique, thin section axial images were performed through the facial bones before and after the uncomplicated administration of intravenous contrast material. CT sagittal and coronal reconstructions were obtained. FINDINGS: Fatty soft tissue inflammation adjacent to the mid dorsal right maxillary alveolar ridge is unchanged. Severe bilateral dental disease bilaterally. Right cheek soft tissue abscess deep to the right platysma muscle is increased significantly in size and now measures 2.5 cm x 1.2 cm in greatest transverse dimension and 3.5 cm in greatest coronal dimension. Increasing opacification of the right maxillary sinus without extending into the right ostiomeatal complex and right nasal vault. Soft tissue is also partially visualized in the right frontal recess and right frontal air cell. These findings may be reactive secondary to severe right dental disease. IMPRESSION: 1. Right facial right soft tissue inflammation adjacent to the right maxillary alveolar ridge and deep to the right platysma muscle appears unchanged. Focal abscess cavity anterior to the right maxillary bone has increased significantly in size and now measures 2.5 cm x 1.2 cm x 3.5 cm in greatest dimension. 2. Increasing opacification of the right maxillary sinus, right ostiomeatal complex, right nasal vault, right frontal recess and partially visualized right frontal air cell. Suspect this is reactive sinusitis secondary to this right maxillary dental disease. 3. Severe bilateral dental disease. This exam was performed according to our departmental dose-optimization program, which includes automated exposure control, adjustment of the mA and/or kV according to patient size and/or use of iterative reconstruction technique. Electronically signed by: Sukumar Caro MD 12/11/2019 11:38 PM CDT
[2019-12-11] MEDS ORDERED: CLINDAMYCIN IV 600MG 600 MG in PREMIX BAG 1 BAG IVPB ONE (23:56)
[2019-12-12 00:03] VITALS: BP 144/69
--- NOTE | 2019-12-12 00:25 | ED.PDOC ---
History of Present Illness - General Chief Complaint: General Stated Complaint: I have a bad tooth and now my face is swelling Time Seen by Provider: 12/11/19 21:43 Source: patient Additional Information: 44yo F presents with R sided facial swelling and pain. The patient was seen initially 6 days ago and started on Clindamycin. She presented to the ED 3 days ago due to persistent symptoms. CT at that time demonstrated soft tissue swelling. Since that time, her oral symptoms have improved but her facial symptoms have worsened significantly. She is tender and full over her check with swelling up to her R eye. She denies vision change or eye pain. She states she has foul drainage she can taste and smell. No fever. No other reported issues. - History of Present Illness Timing/Duration: 1 week Allergies/Adverse Reactions: Allergies Codeine Adverse Reaction (Verified 03/23/19 09:33) Other Causes a headache Sulfa Drugs Allergy (Uncoded 03/23/19 09:33) Rash Adhesive Tape Adverse Reaction (Uncoded 03/23/19 09:33) Other Skin irritation Home Medications: Ambulatory Orders Atorvastatin Calcium 40 mg PO BEDTIME 03/16/19 DULoxetine HCL [Cymbalta] 30 mg PO TID 03/16/19 Metoprolol Succinate [Metoprolol Succinate ER] 50 mg PO BEDTIME 03/16/19 Pantoprazole Sodium 40 mg PO BEDTIME 03/16/19 tiZANidine [Zanaflex] 4 mg PO TID 03/16/19 Gabapentin 800 mg PO TID 06/27/19 Chlorhexidine Mouth Rinse [Peridex] 0.12 % MT BID #1 bttl 11/09/19 Acetamin W/Cod #3 Tab [Tylenol w/CODEINE #3] 1 ea PO Q6HR #20 tab 12/06/19 Clindamycin HCl 300 mg PO TID #15 cap 12/06/19 Clindamycin HCl 300 mg PO Q6H #24 cap 12/08/19 Review of Systems - Review of Systems Constitutional: Denies: chills, fever EENTM: States: blurred vision, nose pain, nose congestion, mouth pain. Denies: double vision Respiratory: Denies: cough, short of breath, wheezing Cardiology: Denies: chest pain, palpitations Gastrointestinal/Abdominal: Denies: abdominal pain, nausea, vomiting Musculoskeletal: Denies: back pain, joint pain, neck pain Skin: States: change in color. Denies: rash Neurological: Denies: numbness, weakness Endocrine: States: no symptoms reported Past Medical History (General) - Patient Medical History Hx Seizures: No Hx Stroke: No Hx Dementia: No Hx Asthma: No Hx of COPD: No Hx Cardiac Disorders: No Hx Congestive Heart Failure: No Hx Pacemaker: No Hx Hypertension: Yes Hx Thyroid Disease: No Hx Diabetes: No Hx Gastroesophageal Reflux: No Hx Renal Disease: No Hx Cancer: No Hx of HIV: No Hx Hepatitis C: No Hx MRSA: No - Vaccination History Hx Tetanus, Diphtheria Vaccination: No Hx Influenza Vaccination: Yes Hx Pneumococcal Vaccination: No Immunizations Up to Date: No - Social History Hx Tobacco Use: No Hx Chewing Tobacco Use: No Hx Alcohol Use: No Hx Substance Use: No Hx Substance Use Treatment: No Hx Depression: No Hx Physical Abuse: No Hx Emotional Abuse: No Hx Suspected Abuse: No - Female History Patient : No Family Medical History - Family History Mother Family History: Unknown Living Status: Still Living Hx Family Congestive Heart Failure: Yes Hx Family Hypertension: Yes Hx Cardiac Disease: Yes Hx Family Diabetes: Yes Hx Family Cancer: Yes - Hx skin CA Physical Exam - Physical Exam General Appearance: Alert, Other - Moderate distress due to symptoms Eye Exam: bilateral normal Ears, Nose, Throat: hearing grossly normal, other - Diffusely poor dentition. R facial swelling, warmth, erythema. Neck: non-tender, full range of motion, supple Respiratory: chest non-tender, lungs clear, normal breath sounds, no respiratory distress Cardiovascular/Chest: normal peripheral pulses, regular rate, rhythm, no edema Gastrointestinal/Abdominal: non tender, soft Neurologic: no motor/sensory deficits, alert, normal mood/affect, oriented x 3 Skin Exam: warm/dry Lymphatic: no adenopathy Progress - Progress Progress: DDX: Cellulitis, osteomylitis, abscess, myositis, dental infection, refractory infection. N95 mask, gloves and glasses used during encounter. Christian Greene, #[id number] 12/12/19 00:38 Pt now has persistent cellulitis and now a 3cm abscess on the maxillary bone despite 5-6 days of Clindamycin. Would benefit from IV antibiotic and OMFS consultation. Discussed with Dr. Bui ([facility]). Accepts transfer. Patient updated and comfortable with plan. We've recommended monitor transport, however, they have chosen to go by private vehicle. 12/12/19 00:51 - Results/Orders Results/Orders: 12/11/19 22:16 Hold Metformin x 48Hrs [id number] 12/11/19 23:56 Clindamycin IV 600Mg [Cleocin IV 600mg] 600 mg Premix Bag 1 bag IVPB ONCE Laboratory Results - last 24 hr 12/11/19 12/11/19 12/11/19 22:30 22:30 22:30 WBC 6.0 RBC 3.25 L Hgb 7.1 L* Hct 23.0 L MCV 70.8 L MCH 21.8 L MCHC 30.7 L RDW 23.8 H Plt Count 214 MPV 7.1 L Absolute Neuts (auto) 4.20 Absolute Lymphs (auto) 1.30 Absolute Monos (auto) 0.40 Absolute Eos (auto) 0.10 Absolute Basos (auto) 0.00 Neutrophils % 69.8 Lymphocytes % 21.4 Monocytes % 6.9 Eosinophils % 1.4 Basophils % 0.5 Normal RBC Morphology Stain quality accept Sodium 135 Potassium 3.0 L Chloride 105 Carbon Dioxide 21 Anion Gap 12.0 BUN 23 H Creatinine 1.36 H BUN/Creatinine Ratio 16.9 Random Glucose 98 Serum Osmolality 273.8 L Lactic Acid 1.2 Calcium 8.6 Last Vital Signs Temp 97.5 F L 12/11/19 21:52 Pulse 62 12/12/19 00:00 Resp 16 12/12/19 00:00 BP 144/69 12/12/19 00:00 Pulse Ox 99 12/12/19 00:00 - EKG/XRAY/CT CT: CT FACE: R inflammatory changes. New abscess. See formal read. Departure - Departure Clinical Impression: Cellulitis and abscess of face, Dental infection Disposition: Transfer to Hospital Condition: Fair Departure Forms: ED Discharge - Pt. Copy, Patient Portal Self Enrollment Referrals: Rodolfo Melton MD [Primary Care Provider] - 1-2 Weeks Home Medications: Ambulatory Orders Atorvastatin Calcium 40 mg PO BEDTIME 03/16/19 DULoxetine HCL [Cymbalta] 30 mg PO TID 03/16/19 Metoprolol Succinate [Metoprolol Succinate ER] 50 mg PO BEDTIME 03/16/19 Pantoprazole Sodium 40 mg PO BEDTIME 10/06/19 tiZANidine [Zanaflex] 4 mg PO TID 03/16/19 Gabapentin 800 mg PO TID 06/27/19 Chlorhexidine Mouth Rinse [Peridex] 0.12 % MT BID #1 bttl 11/09/19 Acetamin W/Cod #3 Tab [Tylenol w/CODEINE #3] 1 ea PO Q6HR #20 tab 12/06/19 Clindamycin HCl 300 mg PO TID #15 cap 12/06/19 Clindamycin HCl 300 mg PO Q6H #24 cap 12/08/19
[2019-12-12 00:56] VITALS: TEMP 97.6; O2SAT 100
== END 2019-12-12 00:59 | disposition short-term general hospital (02) ==
LOC: ER 21:40
DX: L03.211 Cellulitis of face (principal); I10 Essential (primary) hypertension; K04.7 Periapical abscess without sinus
CPT/HCPCS: 36415; 70488; 80048; 83605; 85025; A4216; J2270; J2405; J3490